=== PATIENT | female | born 1960 | race Caucasian/White ===

== ENCOUNTER → 2017-05-28 | Outpatient (CLI) | payer OTHER ==
[~2017-05-28] MED LIST: ABAC300; ALBIPROI INH; ALBU.083IS; ALBU.083IS IH; ALBU3IS INH; ALBU90I INH; ALBU90OI; ALBU90OI6 INH; ALBU90OI61 INH; ALBUIS; ALBUTEROL; ASCO500 PO; ATELVIA; AZIT250 PO; AZIT500 PO; Albuterol2.5 MG/0.5 INH; Amoxicillin500 MG PO; BIOTIN PO; BIOTIN5 MG PO; BIOTIN5000 MC1 SL; BUSP10; C-PAP; CEFP200 PO; CEPH500 PO; CLIN300 PO; CPAP; CYCL10; CYCL10 PO; CYTOXIN; Colace100 MG PO; DECADRON4 MG PO; DIAZ10 PO; DIAZ5; DIAZ5 PO; DILT120 PO; DILT180ER PO; DIPH50 PO; DOXY100 PO; ERGO400 PO; ESCI20; ESCI20 PO; FLUO10 PO; FLUSAL2505; FLUSAL5005; FLUSAL5005 IH; FLUT1DIS8 INH; FOSAMAX PO; FURO20 PO; GUAI600T33; GUAI600T33 PO; HYDACE10B PO; HYDACE5 PO; HYDCHL12.5 PO; HYDCHL25 PO; HYDMOR2 PO; HYDPAM50 PO; IBUP400 PO; IBUP600 PO; IBUP800 PO; K-Dur10 MEQ PO; LEVFLO500 PO; LEVO750 PO; LIDO700A20 TOP; LISI20 PO; LITH300C; LITH300C PO; LITH300CA PO; LITH300ER PO; LORA.5 PO; MAGOXI400 PO; METH10 PO; METPRE4DP PO; METPRE8; MIRALAX17 GM PO; MONT10T; MONT10T PO; MUCINEX; Magnesium250 MG PO; Mucinex100 MG PO; NEBULIZ; NICO14TP TOP; OLAN5; OMEP20ER PO; OMEPRAZOLE MAGN20 MG PO; ONDA4 PO; OXYACE5T PO; OXYC10ER PO; OXYC10TA19 PO; OXYC15ER PO; OXYC1TAB11 PO; OXYC5 PO; OXYGEN; OXYGEN USE; Oxygen; POTA10T PO; POTCHL10ER PO; POTCHL20ER PO; PRED10; PRED10 PO; PRED20; PRED20 PO; PRED5 PO; PREDNISONE TAPER; PROACE100 PO; PROC10 PO; PROLIA60 MG/1 ML SQ; PROM25 PO; PROZAC20 MG PO; Prednisone10 MG PO; Prednisone20 MG PO; Prednisone50 MG PO; Prozac20 MG PO; QUET25; QUET25 PO; RANI150 PO; RESTORIL; RXOXYACE PO; SOLUMEDROL; SPIR25 PO; SPIRIVA PO; TEMA30; TEMA30 PO; TETR250; THEO200ERA PO; TIOT18; TIOT18 IH; TIOT18 INH; Tylenol325 MG PO; Ultram50 MG PO; VALCADE; VARE1 PO; VENL75ER; VERA120 PO; VERA120ERB PO; VERA80; VERA80 PO; VERAPAMIL; VITAMIN D-32000 UNIT PO; Ventolin Soln3 ML INH; Ventolin5 MG/1 ML IH; Zithromax250 MG PO; Zofran4 MG PO; [UNRECOGNIZED DRUG - OTHER] PO
[2017-05-28 19:02] LABS: Alanine Aminotransfer (ALT/SGP 30 U/L (12-78); Albumin, Blood 3.6 g/dL (3.4-5.0); Albumin/Globulin Ratio 1.1 (0.8-1.8); Alk Phos 79 U/L (50-136); Anion Gap 10 mmol/L (6-16); Aspartate Aminotrans (AST/SGOT 21 U/L (12-37); Bilirubin, Total 0.4 mg/dL (0.1-1.0); Blood Urea Nitrogen 14 mg/dL (8-24); Bun/Creatinine Ratio 14.1 (12.0-20.0); CO2, Blood 25 mmol/L (21-32); Calcium, Blood 9.8 mg/dL (8.5-10.1); Chloride, Blood 106 mmol/L (98-108); Creatinine, Blood 0.99 mg/dL (0.40-1.00); Globulin, Blood 3.2 g/dL (2.2-4.0); Glomerular Filtration Rate >60 (60-); Glucose, Blood 91 mg/dL (70-99); Potassium, Blood 4.3 mmol/L (3.5-5.5); Sodium, Blood 141 mmol/L (136-145); Total Protein, Blood 6.8 g/dL (6.4-8.2)
[2017-06-01 13:14] LABS: Albumin 3.6 g/dL (3.5-5.0); Monoclonal Protein 0.9 g/dL; Monoclonal Protien % 13.8 %; Protein, Total 6.7 g/dL (6.2-8.2)
== END | disposition home or self-care (01) ==
LOC: LAB SHORT 13:44
PROVIDERS: Internal Medicine Hematology & Oncology
DX: C90.00 Multiple myeloma not having achieved remission (principal)
CPT/HCPCS: 80053; 83883; 84165; 86334

== ENCOUNTER → 2017-06-11 | Outpatient (CLI) | payer OTHER ==
[2017-06-11 15:07] LABS: Alanine Aminotransfer (ALT/SGP 30 U/L (12-78); Albumin, Blood 3.6 g/dL (3.4-5.0); Albumin/Globulin Ratio 1.2 (0.8-1.8); Alk Phos 75 U/L (50-136); Anion Gap 9 mmol/L (6-16); Aspartate Aminotrans (AST/SGOT 15 U/L (12-37); Bilirubin, Total 0.4 mg/dL (0.1-1.0); Blood Urea Nitrogen 14 mg/dL (8-24); CO2, Blood 27 mmol/L (21-32); Calcium, Blood 9.8 mg/dL (8.5-10.1); Chloride, Blood 107 mmol/L (98-108); Creatinine, Blood 0.88 mg/dL (0.40-1.00); Globulin, Blood 3.1 g/dL (2.2-4.0); Glomerular Filtration Rate >60 (60-); Glucose, Blood 128 mg/dL (70-99); Sodium, Blood 143 mmol/L (136-145); Total Protein, Blood 6.7 g/dL (6.4-8.2)
== END | disposition home or self-care (01) ==
LOC: LAB 13:05
PROVIDERS: Internal Medicine Hematology & Oncology
DX: C90.00 Multiple myeloma not having achieved remission (principal)
CPT/HCPCS: 80053

== ENCOUNTER → 2017-06-18 | Outpatient (CLI) | payer OTHER ==
[2017-06-18 14:44] LABS: Alanine Aminotransfer (ALT/SGP 26 U/L (12-78); Albumin, Blood 3.6 g/dL (3.4-5.0); Albumin/Globulin Ratio 1.1 (0.8-1.8); Alk Phos 58 U/L (50-136); Anion Gap 7 mmol/L (6-16); Aspartate Aminotrans (AST/SGOT 20 U/L (12-37); Bilirubin, Total 0.4 mg/dL (0.1-1.0); Blood Urea Nitrogen 12 mg/dL (8-24); Bun/Creatinine Ratio 13.4 (12.0-20.0); CO2, Blood 28 mmol/L (21-32); Calcium, Blood 9.7 mg/dL (8.5-10.1); Chloride, Blood 106 mmol/L (98-108); Creatinine, Blood 0.89 mg/dL (0.40-1.00); Globulin, Blood 3.2 g/dL (2.2-4.0); Glomerular Filtration Rate >60 (60-); Glucose, Blood 135 mg/dL (70-99); Potassium, Blood 4.4 mmol/L (3.5-5.5); Sodium, Blood 141 mmol/L (136-145); Total Protein, Blood 6.8 g/dL (6.4-8.2)
[2017-06-22 11:42] LABS: Albumin 3.7 g/dL (3.5-5.0); Albumin 54.6 % (45.0-80.0); Monoclonal Protein 0.9 g/dL; Protein, Total 6.7 g/dL (6.2-8.2)
== END | disposition home or self-care (01) ==
LOC: LAB 13:04
PROVIDERS: Internal Medicine Hematology & Oncology
DX: C90.00 Multiple myeloma not having achieved remission (principal)
CPT/HCPCS: 80053; 83883; 84165; 86334

== ENCOUNTER → 2017-07-09 | Outpatient (CLI) | payer OTHER ==
[~2017-07-09] MED LIST changes: -MONT10T PO; -ONDA4 PO; -OXYC5 PO
[2017-07-09 17:20] LABS: Albumin, Blood 3.6 g/dL (3.4-5.0); Albumin/Globulin Ratio 1.3 (0.8-1.8); Bilirubin, Total 0.4 mg/dL (0.1-1.0); Bun/Creatinine Ratio 8.7 (12.0-20.0); Calcium, Blood 10.5 mg/dL (8.5-10.1); Creatinine, Blood 1.04 mg/dL (0.40-1.00); Globulin, Blood 2.8 g/dL (2.2-4.0); Potassium, Blood 4.4 mmol/L (3.5-5.5); Total Protein, Blood 6.4 g/dL (6.4-8.2)
[2017-07-10 16:06] LABS: Protein, Total 6.1 g/dL (6.2-8.2)
[2017-07-13 13:20] LABS: Albumin 3.4 g/dL (3.5-5.0); Albumin 56.4 % (45.0-80.0); Monoclonal Protein 0.7 g/dL; Monoclonal Protien % 11.2 %
== END ==
LOC: LAB 16:26 → LAB SHORT 16:26
PROVIDERS: Internal Medicine Hematology & Oncology
DX: C90.00 Multiple myeloma not having achieved remission (principal)
CPT/HCPCS: 80053; 83883; 84165; 86334

== ENCOUNTER 2017-07-17 14:10 | Emergency (ER) | payer OTHER ==
[~2017-07-17] VITALS: Ht 152.4 cm; Wt 122.5 kg
[~2017-07-17 14:10] MED LIST changes: -BIOTIN5000 MC1 SL; -CYTOXIN; -Colace100 MG PO; -DECADRON4 MG PO; -LIDO700A20 TOP; -MAGOXI400 PO; -MIRALAX17 GM PO; -MONT10T PO; -Mucinex100 MG PO; -OMEPRAZOLE MAGN20 MG PO; -ONDA4 PO; -OXYC5 PO; -Tylenol325 MG PO; -VALCADE; -Zofran4 MG PO; -[UNRECOGNIZED DRUG - OTHER] PO
[2017-07-17 14:57] LABS: BASOPHILS ABSOLUTE AUTO 0.08 K/mm3 (0.00-0.23); BASOPHILS PERCENT AUTO 1 % (0-2); EOSINOPHILS ABSOLUTE AUTO 0.02 K/mm3 (0.00-0.68); EOSINOPHILS PERCENT AUTO 0 % (0-6); Hematocrit 40.3 % (33.0-51.0); Hemoglobin 12.9 g/dL (11.5-16.0); IMMATURE GRAN ABSOLUTE AUTO 0.46 K/mm3 (0.00-0.10); IMMATURE GRAN PERCENT AUTO 4 % (0-1); LYMPHOCYTES ABSOLUTE AUTO 0.98 K/mm3 (0.84-5.20); LYMPHOCYTES PERCENT AUTO 9 % (21-46); MONOCYTES ABSOLUTE AUTO 0.18 K/mm3 (0.16-1.47); MONOCYTES PERCENT AUTO 2 % (4-13); Mean Corpuscular HGB 29.7 pg (26.0-34.0); Mean Corpuscular Volume 93 fL (80-100); Mean Platelet Volume 9.8 fL (9.1-12.4); NEUTROPHILS ABSOLUTE AUTO 9.19 K/mm3 (1.96-9.15); NEUTROPHILS PERCENT AUTO 84 % (41-73); Platelet Count 274 K/mm3 (150-400); RDW Coefficient Variation 14.6 % (11.7-14.2); Red Blood Cell Count 4.34 M/mm3 (3.80-5.20); White Blood Cell Count 10.91 K/mm3 (4.00-11.30)
[2017-07-17 15:16] LABS: Alanine Aminotransfer (ALT/SGP 38 U/L (12-78); Albumin, Blood 3.9 g/dL (3.4-5.0); Alk Phos 72 U/L (50-136); Anion Gap 9 mmol/L (6-16); Aspartate Aminotrans (AST/SGOT 23 U/L (12-37); Bilirubin, Total 0.4 mg/dL (0.1-1.0); Blood Urea Nitrogen 13 mg/dL (8-24); Bun/Creatinine Ratio 13.9 (12.0-20.0); CO2, Blood 26 mmol/L (21-32); Calcium, Blood 10.8 mg/dL (8.5-10.1); Chloride, Blood 103 mmol/L (98-108); Creatinine, Blood 0.94 mg/dL (0.40-1.00); Globulin, Blood 3.8 g/dL (2.2-4.0); Glomerular Filtration Rate >60 (60-); Glucose, Blood 152 mg/dL (70-99); Potassium, Blood 4.2 mmol/L (3.5-5.5); Sodium, Blood 138 mmol/L (136-145); Total Protein, Blood 7.7 g/dL (6.4-8.2); Troponin I <0.015 ng/mL (0.000-0.040)
== END 2017-07-17 18:52 | disposition home or self-care (01) ==
LOC: ER 14:10
PROVIDERS: Emergency Medicine
DX: J84.9 Interstitial pulmonary disease, unspecified (principal); C90.00 Multiple myeloma not having achieved remission; J44.9 Chronic obstructive pulmonary disease, unspecified; Z91.048 Other nonmedicinal substance allergy status; Z79.899 Other long term (current) drug therapy; Z87.891 Personal history of nicotine dependence
CPT/HCPCS: 36415; 71046; 80053; 84484; 85025; 93005; 93010; 99284

== ENCOUNTER → 2017-07-17 | Outpatient (CLI) | payer OTHER ==
[~2017-07-17] MED LIST changes: +MONT10T PO; +ONDA4 PO; +OXYC5 PO
[2017-07-17 13:15] LABS: Alanine Aminotransfer (ALT/SGP 32 U/L (12-78); Albumin, Blood 3.6 g/dL (3.4-5.0); Albumin/Globulin Ratio 1.2 (0.8-1.8); Alk Phos 61 U/L (50-136); Anion Gap 8 mmol/L (6-16); Aspartate Aminotrans (AST/SGOT 22 U/L (12-37); Bilirubin, Total 0.7 mg/dL (0.1-1.0); Blood Urea Nitrogen 12 mg/dL (8-24); Bun/Creatinine Ratio 13.5 (12.0-20.0); CO2, Blood 27 mmol/L (21-32); Calcium, Blood 10.3 mg/dL (8.5-10.1); Chloride, Blood 106 mmol/L (98-108); Creatinine, Blood 0.89 mg/dL (0.40-1.00); Glomerular Filtration Rate >60 (60-); Glucose, Blood 120 mg/dL (70-99); Potassium, Blood 4.4 mmol/L (3.5-5.5); Sodium, Blood 141 mmol/L (136-145); Total Protein, Blood 6.6 g/dL (6.4-8.2)
== END ==
LOC: LAB 10:00
PROVIDERS: Internal Medicine Hematology & Oncology
DX: C90.00 Multiple myeloma not having achieved remission (principal)
CPT/HCPCS: 80053

== ENCOUNTER → 2017-07-24 | Outpatient (CLI) | payer OTHER ==
[~2017-07-24] MED LIST changes: +BIOTIN5000 MC1 SL; +CYTOXIN; +Colace100 MG PO; +DECADRON4 MG PO; +LIDO700A20 TOP; +MAGOXI400 PO; +MIRALAX17 GM PO; +MONT10T PO; +Mucinex100 MG PO; +OMEPRAZOLE MAGN20 MG PO; +ONDA4 PO; +OXYC5 PO; +Tylenol325 MG PO; +VALCADE; +Zofran4 MG PO; +[UNRECOGNIZED DRUG - OTHER] PO
[2017-07-24 13:02] LABS: Alanine Aminotransfer (ALT/SGP 29 U/L (12-78); Albumin, Blood 3.6 g/dL (3.4-5.0); Albumin/Globulin Ratio 1.2 (0.8-1.8); Alk Phos 71 U/L (50-136); Anion Gap 8 mmol/L (6-16); Aspartate Aminotrans (AST/SGOT 17 U/L (12-37); Bilirubin, Total 0.4 mg/dL (0.1-1.0); Blood Urea Nitrogen 14 mg/dL (8-24); Bun/Creatinine Ratio 15.9 (12.0-20.0); CO2, Blood 27 mmol/L (21-32); Calcium, Blood 9.1 mg/dL (8.5-10.1); Chloride, Blood 107 mmol/L (98-108); Creatinine, Blood 0.88 mg/dL (0.40-1.00); Globulin, Blood 3.1 g/dL (2.2-4.0); Glomerular Filtration Rate >60 (60-); Glucose, Blood 122 mg/dL (70-99); Sodium, Blood 142 mmol/L (136-145); Total Protein, Blood 6.7 g/dL (6.4-8.2)
[2017-07-27 14:45] LABS: Albumin 3.8 g/dL (3.5-5.0); Albumin 57.5 % (45.0-80.0); Monoclonal Protein 0.6 g/dL; Monoclonal Protien % 9.5 %; Protein, Total 6.6 g/dL (6.2-8.2)
== END | disposition home or self-care (01) ==
LOC: LAB 12:32
PROVIDERS: Internal Medicine Hematology & Oncology
DX: C90.00 Multiple myeloma not having achieved remission (principal)
CPT/HCPCS: 80053; 83883; 84165; 86334

== ENCOUNTER → 2017-08-07 | Outpatient (CLI) | payer OTHER ==
[~2017-08-07] MED LIST changes: -MONT10T PO; -ONDA4 PO; -OXYC5 PO
[2017-08-07 13:48] LABS: Alanine Aminotransfer (ALT/SGP 32 U/L (12-78); Albumin, Blood 3.5 g/dL (3.4-5.0); Albumin/Globulin Ratio 1.2 (0.8-1.8); Alk Phos 63 U/L (50-136); Anion Gap 8 mmol/L (6-16); Aspartate Aminotrans (AST/SGOT 18 U/L (12-37); Bilirubin, Total 0.3 mg/dL (0.1-1.0); Blood Urea Nitrogen 12 mg/dL (8-24); Bun/Creatinine Ratio 12.6 (12.0-20.0); CO2, Blood 26 mmol/L (21-32); Calcium, Blood 9.8 mg/dL (8.5-10.1); Chloride, Blood 108 mmol/L (98-108); Creatinine, Blood 0.95 mg/dL (0.40-1.00); Glomerular Filtration Rate >60 (60-); Glucose, Blood 107 mg/dL (70-99); Potassium, Blood 4.1 mmol/L (3.5-5.5); Sodium, Blood 142 mmol/L (136-145); Total Protein, Blood 6.5 g/dL (6.4-8.2)
[2017-08-12 12:32] LABS: Albumin 3.5 g/dL (3.5-5.0); Albumin 56.3 % (45.0-80.0); Monoclonal Protein 0.6 g/dL; Monoclonal Protien % 9.8 %; Protein, Total 6.2 g/dL (6.2-8.2)
== END | disposition home or self-care (01) ==
LOC: LAB 12:21 → LAB SHORT 12:21
PROVIDERS: Internal Medicine Hematology & Oncology
DX: C90.00 Multiple myeloma not having achieved remission (principal)
CPT/HCPCS: 80053; 83883; 84165; 86334

== ENCOUNTER → 2017-08-14 | Outpatient (CLI) | payer OTHER ==
[~2017-08-14] MED LIST changes: +MONT10T PO; +ONDA4 PO; +OXYC5 PO
[2017-08-14 14:27] LABS: Alanine Aminotransfer (ALT/SGP 31 U/L (12-78); Albumin, Blood 3.6 g/dL (3.4-5.0); Albumin/Globulin Ratio 1.1 (0.8-1.8); Alk Phos 52 U/L (50-136); Anion Gap 7 mmol/L (6-16); Aspartate Aminotrans (AST/SGOT 18 U/L (12-37); Bilirubin, Total 0.3 mg/dL (0.1-1.0); Blood Urea Nitrogen 14 mg/dL (8-24); Bun/Creatinine Ratio 14.7 (12.0-20.0); CO2, Blood 27 mmol/L (21-32); Calcium, Blood 10.1 mg/dL (8.5-10.1); Chloride, Blood 107 mmol/L (98-108); Creatinine, Blood 0.95 mg/dL (0.40-1.00); Globulin, Blood 3.2 g/dL (2.2-4.0); Glomerular Filtration Rate >60 (60-); Glucose, Blood 110 mg/dL (70-99); Potassium, Blood 4.2 mmol/L (3.5-5.5); Sodium, Blood 141 mmol/L (136-145); Total Protein, Blood 6.8 g/dL (6.4-8.2)
[2017-08-17 13:44] LABS: Albumin 3.8 g/dL (3.5-5.0); Albumin 57.7 % (45.0-80.0); Monoclonal Protein 0.6 g/dL; Monoclonal Protien % 8.8 %; Protein, Total 6.6 g/dL (6.2-8.2)
== END | disposition home or self-care (01) ==
LOC: LAB 09:30
PROVIDERS: Internal Medicine Hematology & Oncology
DX: C90.00 Multiple myeloma not having achieved remission (principal); D47.2 Monoclonal gammopathy
CPT/HCPCS: 80053; 83883; 84165; 86334

== ENCOUNTER → 2017-08-28 | Outpatient (CLI) | payer OTHER ==
[~2017-08-28] MED LIST changes: -MONT10T PO; -ONDA4 PO; -OXYC5 PO
[2017-08-28 17:55] LABS: Alanine Aminotransfer (ALT/SGP 31 U/L (12-78); Albumin, Blood 3.8 g/dL (3.4-5.0); Albumin/Globulin Ratio 1.3 (0.8-1.8); Alk Phos 64 U/L (50-136); Anion Gap 7 mmol/L (6-16); Aspartate Aminotrans (AST/SGOT 25 U/L (12-37); Bilirubin, Total 0.4 mg/dL (0.1-1.0); Blood Urea Nitrogen 8 mg/dL (8-24); Bun/Creatinine Ratio 8.8 (12.0-20.0); CO2, Blood 29 mmol/L (21-32); Calcium, Blood 10.6 mg/dL (8.5-10.1); Chloride, Blood 105 mmol/L (98-108); Glomerular Filtration Rate >60 (60-); Glucose, Blood 111 mg/dL (70-99); Potassium, Blood 4.3 mmol/L (3.5-5.5); Sodium, Blood 141 mmol/L (136-145); Total Protein, Blood 6.8 g/dL (6.4-8.2)
== END | disposition home or self-care (01) ==
LOC: LAB SHORT 16:56 → LAB 16:56
PROVIDERS: Internal Medicine Hematology & Oncology
DX: C90.00 Multiple myeloma not having achieved remission (principal)
CPT/HCPCS: 80053

== ENCOUNTER 2017-08-30 17:12 | Inpatient (IN) | payer OTHER ==
[~2017-08-30] VITALS: Ht 152.4 cm; Wt 131.0 kg
[~2017-08-30 17:12] MED LIST changes: -BIOTIN5000 MC1 SL; -CYTOXIN; -Colace100 MG PO; -DECADRON4 MG PO; -LIDO700A20 TOP; -MAGOXI400 PO; -MIRALAX17 GM PO; -Mucinex100 MG PO; -OMEPRAZOLE MAGN20 MG PO; -Tylenol325 MG PO; -VALCADE; -Zofran4 MG PO; -[UNRECOGNIZED DRUG - OTHER] PO
[2017-08-30 17:29] LABS: BASOPHILS ABSOLUTE AUTO 0.07 K/mm3 (0.00-0.23); BASOPHILS PERCENT AUTO 0 % (0-2); EOSINOPHILS ABSOLUTE AUTO 0.01 K/mm3 (0.00-0.68); EOSINOPHILS PERCENT AUTO 0 % (0-6); Hematocrit 40.7 % (33.0-51.0); Hemoglobin 12.4 g/dL (11.5-16.0); IMMATURE GRAN ABSOLUTE AUTO 0.13 K/mm3 (0.00-0.10); IMMATURE GRAN PERCENT AUTO 1 % (0-1); LYMPHOCYTES ABSOLUTE AUTO 1.58 K/mm3 (0.84-5.20); LYMPHOCYTES PERCENT AUTO 9 % (21-46); MONOCYTES ABSOLUTE AUTO 1.68 K/mm3 (0.16-1.47); MONOCYTES PERCENT AUTO 10 % (4-13); Mean Corpuscular HGB 30.2 pg (26.0-34.0); Mean Corpuscular HGB Conc 30.5 g/dL (31.5-36.5); Mean Corpuscular Volume 99 fL (80-100); Mean Platelet Volume 9.7 fL (9.1-12.4); NEUTROPHILS ABSOLUTE AUTO 13.55 K/mm3 (1.96-9.15); NEUTROPHILS PERCENT AUTO 80 % (41-73); Platelet Count 220 K/mm3 (150-400); RDW Coefficient Variation 14.2 % (11.7-14.2); RDW Standard Deviation 51.9 fL (35.1-46.3); Red Blood Cell Count 4.11 M/mm3 (3.80-5.20); White Blood Cell Count 17.02 K/mm3 (4.00-11.30)
[2017-08-30 17:43] LABS: Alanine Aminotransfer (ALT/SGP 31 U/L (12-78); Albumin, Blood 3.6 g/dL (3.4-5.0); Alk Phos 66 U/L (50-136); Anion Gap 2 mmol/L (6-16); Aspartate Aminotrans (AST/SGOT 24 U/L (12-37); Bilirubin, Total 0.3 mg/dL (0.1-1.0); Blood Urea Nitrogen 19 mg/dL (8-24); Bun/Creatinine Ratio 19.6 (12.0-20.0); CO2, Blood 34 mmol/L (21-32); Calcium, Blood 9.7 mg/dL (8.5-10.1); Chloride, Blood 107 mmol/L (98-108); Creatinine, Blood 0.97 mg/dL (0.40-1.00); Globulin, Blood 3.6 g/dL (2.2-4.0); Glomerular Filtration Rate >60 (60-); Glucose, Blood 105 mg/dL (70-99); Potassium, Blood 4.3 mmol/L (3.5-5.5); Sodium, Blood 143 mmol/L (136-145); Total Protein, Blood 7.2 g/dL (6.4-8.2); Troponin I <0.015 ng/mL (0.000-0.040)
[2017-08-30 17:59] LABS: Base Excess Venous 6.6 mmol/L; Bicarbonate Venous 28.6 mmol/L (24.0-30.0); PCO2 Venous 65.6 mmHg (38-42); PO2 Venous 113 mmHg (38-42); pH Blood Venous 7.31 (7.34-7.37)
[2017-08-30] MEDS ORDERED: QUET25 PO (20:51)
[2017-08-31 04:21] LABS: BASOPHILS ABSOLUTE AUTO 0.02 K/mm3 (0.00-0.23); BASOPHILS PERCENT AUTO 0 % (0-2); EOSINOPHILS PERCENT AUTO 0 % (0-6); Hematocrit 37.7 % (33.0-51.0); Hemoglobin 11.5 g/dL (11.5-16.0); IMMATURE GRAN ABSOLUTE AUTO 0.08 K/mm3 (0.00-0.10); IMMATURE GRAN PERCENT AUTO 1 % (0-1); LYMPHOCYTES ABSOLUTE AUTO 0.49 K/mm3 (0.84-5.20); LYMPHOCYTES PERCENT AUTO 5 % (21-46); MONOCYTES ABSOLUTE AUTO 0.17 K/mm3 (0.16-1.47); MONOCYTES PERCENT AUTO 2 % (4-13); Mean Corpuscular HGB 29.8 pg (26.0-34.0); Mean Corpuscular HGB Conc 30.5 g/dL (31.5-36.5); Mean Corpuscular Volume 98 fL (80-100); Mean Platelet Volume 10.1 fL (9.1-12.4); NEUTROPHILS ABSOLUTE AUTO 9.41 K/mm3 (1.96-9.15); NEUTROPHILS PERCENT AUTO 93 % (41-73); Platelet Count 204 K/mm3 (150-400); RDW Coefficient Variation 14.5 % (11.7-14.2); RDW Standard Deviation 51.9 fL (35.1-46.3); Red Blood Cell Count 3.86 M/mm3 (3.80-5.20); White Blood Cell Count 10.17 K/mm3 (4.00-11.30)
[2017-08-31 04:41] LABS: Anion Gap 5 mmol/L (6-16); Blood Urea Nitrogen 20 mg/dL (8-24); CO2, Blood 31 mmol/L (21-32); Calcium, Blood 9.9 mg/dL (8.5-10.1); Chloride, Blood 106 mmol/L (98-108); Creatinine, Blood 0.87 mg/dL (0.40-1.00); Glomerular Filtration Rate >60 (60-); Glucose, Blood 173 mg/dL (70-99); Potassium, Blood 4.9 mmol/L (3.5-5.5); Sodium, Blood 142 mmol/L (136-145)
[2017-08-31 08:58] LABS: Adenovirus Not Detected (NOT DETECT); Bordetella pertussis Not Detected (NOT DETECT); Chlamydophila pneumoniae Not Detected (NOT DETECT); Coronavirus 229E Not Detected (NOT DETECT); Coronavirus HKU1 Not Detected (NOT DETECT); Coronavirus NL63 Not Detected (NOT DETECT); Coronavirus OC43 Not Detected (NOT DETECT); Human Metapneumovirus Not Detected (NOT DETECT); Human Rhinovirus/Enterovirus Not Detected (NOT DETECT); Influenza A/2009-H1 Not Detected (NOT DETECT); Influenza A/H1 Not Detected (NOT DETECT); Influenza A/H3 Not Detected (NOT DETECT); Influenza B Not Detected (NOT DETECT); Mycoplasma pneumoniae Not Detected (NOT DETECT); Parainfluenza Virus 1 Not Detected (NOT DETECT); Parainfluenza Virus 2 Not Detected (NOT DETECT); Parainfluenza Virus 3 Not Detected (NOT DETECT); Parainfluenza Virus 4 Not Detected (NOT DETECT)
[2017-08-31 10:15] LABS: Influenza A Not Detected (NOT DETECT); Respiratory Syncytial Virus Detected (NOT DETECT)
[2017-09-02 04:41] LABS: Mean Platelet Volume 10.4 fL (9.1-12.4); Platelet Count 209 K/mm3 (150-400)
[2017-09-04 04:14] LABS: Hematocrit 37.6 % (33.0-51.0); Hemoglobin 11.6 g/dL (11.5-16.0); Mean Corpuscular HGB 29.6 pg (26.0-34.0); Mean Corpuscular HGB Conc 30.9 g/dL (31.5-36.5); Mean Corpuscular Volume 96 fL (80-100); Mean Platelet Volume 10.1 fL (9.1-12.4); NRBC ABSOLUTE 0.02 K/mm3 (0.00-0.02); NRBC Auto 0.1 /100 WBC (0.0-0.2); Platelet Count 222 K/mm3 (150-400); RDW Coefficient Variation 13.8 % (11.7-14.2); RDW Standard Deviation 48.8 fL (35.1-46.3); Red Blood Cell Count 3.92 M/mm3 (3.80-5.20); White Blood Cell Count 15.44 K/mm3 (4.00-11.30)
[2017-09-04 04:44] LABS: Anion Gap 4 mmol/L (6-16); Blood Urea Nitrogen 26 mg/dL (8-24); Bun/Creatinine Ratio 30.7 (12.0-20.0); CO2, Blood 35 mmol/L (21-32); Calcium, Blood 10.1 mg/dL (8.5-10.1); Chloride, Blood 102 mmol/L (98-108); Creatinine, Blood 0.85 mg/dL (0.40-1.00); Glomerular Filtration Rate >60 (60-); Glucose, Blood 153 mg/dL (70-99); Potassium, Blood 4.9 mmol/L (3.5-5.5); Sodium, Blood 141 mmol/L (136-145)
[2017-09-04 05:27] LABS: BAND PERCENT MAN 9 % (0-8); BASOPHILS PERCENT MAN 0 % (0-2); EOSINOPHILS PERCENT MAN 0 % (0-6); LYMPHOCYTES ABSOLUTE MAN 0.77 K/mm3 (0.84-5.20); LYMPHOCYTES PERCENT MAN 5 % (21-46); MONOCYTES ABSOLUTE MAN 0.46 K/mm3 (0.16-1.47); MONOCYTES PERCENT MAN 3 % (4-13); SEG NEUTROPHILS PERCENT MAN 83 % (41-73); TOTAL CELLS COUNTED 100
[2017-09-05 04:11] LABS: Hematocrit 39.6 % (33.0-51.0); Hemoglobin 12.2 g/dL (11.5-16.0); Mean Corpuscular HGB 29.7 pg (26.0-34.0); Mean Corpuscular HGB Conc 30.8 g/dL (31.5-36.5); Mean Corpuscular Volume 96 fL (80-100); Mean Platelet Volume 10.4 fL (9.1-12.4); Platelet Count 253 K/mm3 (150-400); RDW Coefficient Variation 13.8 % (11.7-14.2); RDW Standard Deviation 48.6 fL (35.1-46.3); Red Blood Cell Count 4.11 M/mm3 (3.80-5.20); White Blood Cell Count 20.34 K/mm3 (4.00-11.30)
[2017-09-05 04:33] LABS: Anion Gap 6 mmol/L (6-16); Blood Urea Nitrogen 27 mg/dL (8-24); Bun/Creatinine Ratio 27.2 (12.0-20.0); CO2, Blood 33 mmol/L (21-32); Calcium, Blood 10.1 mg/dL (8.5-10.1); Chloride, Blood 99 mmol/L (98-108); Creatinine, Blood 0.99 mg/dL (0.40-1.00); Glomerular Filtration Rate >60 (60-); Glucose, Blood 239 mg/dL (70-99); Potassium, Blood 4.4 mmol/L (3.5-5.5); Sodium, Blood 138 mmol/L (136-145)
[2017-09-05 05:02] LABS: BAND PERCENT MAN 3 % (0-8); BASOPHILS PERCENT MAN 0 % (0-2); EOSINOPHILS PERCENT MAN 0 % (0-6); LYMPHOCYTES % ATYPICAL MANUAL 5 % (0-0); LYMPHOCYTES ABSOLUTE MAN 1.62 K/mm3 (0.84-5.20); LYMPHOCYTES PERCENT MAN 3 % (21-46); MONOCYTES ABSOLUTE MAN 0.81 K/mm3 (0.16-1.47); MONOCYTES PERCENT MAN 4 % (4-13); MYELOCYTE PERCENT MAN 2 % (0-0); NEUTROPHILS ABSOLUTE MAN 17.08 K/mm3 (1.96-9.15); SEG NEUTROPHILS PERCENT MAN 81 % (41-73); TOTAL CELLS COUNTED 100
[2017-09-05 05:03] LABS: PROMYELOCYTE PERCENT MAN 2 % (0-0)
[2017-09-06 04:05] LABS: Hemoglobin 12.4 g/dL (11.5-16.0); Mean Corpuscular HGB 29.9 pg (26.0-34.0); Mean Corpuscular Volume 96 fL (80-100); Mean Platelet Volume 10.1 fL (9.1-12.4); Platelet Count 235 K/mm3 (150-400); RDW Coefficient Variation 13.8 % (11.7-14.2); RDW Standard Deviation 49.1 fL (35.1-46.3); Red Blood Cell Count 4.15 M/mm3 (3.80-5.20); White Blood Cell Count 20.16 K/mm3 (4.00-11.30)
[2017-09-06 04:30] LABS: Anion Gap 6 mmol/L (6-16); Blood Urea Nitrogen 30 mg/dL (8-24); Bun/Creatinine Ratio 30.7 (12.0-20.0); CO2, Blood 33 mmol/L (21-32); Calcium, Blood 10.1 mg/dL (8.5-10.1); Chloride, Blood 99 mmol/L (98-108); Creatinine, Blood 0.98 mg/dL (0.40-1.00); Glomerular Filtration Rate >60 (60-); Glucose, Blood 204 mg/dL (70-99); Potassium, Blood 4.6 mmol/L (3.5-5.5); Sodium, Blood 138 mmol/L (136-145)
[2017-09-06] MEDS ORDERED: PROZAC20 MG PO (14:17)
[2017-09-06] MEDS ORDERED: Tylenol325 MG PO (14:26)
[2017-09-06] MEDS ORDERED: Colace100 MG PO (14:28)
[2017-09-06] MEDS ORDERED: LIDO700A20 TOP (14:30)
[2017-09-06] MEDS ORDERED: [UNRECOGNIZED DRUG - OTHER] PO (14:41)
[2017-09-06] MEDS ORDERED: MIRALAX17 GM PO (14:42)
[2017-09-06] MEDS ORDERED: Zofran4 MG PO (14:43)
[2017-09-06] MEDS ORDERED: LEVO750 PO (14:45)
[2017-09-06] MEDS ORDERED: PRED10 PO (14:49)
[2017-09-06] MEDS ORDERED: OMEPRAZOLE MAGN20 MG PO (14:51)
== END 2017-09-06 15:45 | disposition home or self-care (01) | DRG 189 ==
LOC: ER 17:12 → PCU 18:59
PROVIDERS: Emergency Medicine; Hospitalist; Internal Medicine
PROC: 5A09557 Assistance with Respiratory Ventilation, Greater than 96 Consecutive Hours, Continuous Positive Airway Pressure (ICD-10-PCS; principal; 2017-08-30)
DX: J96.21 Acute and chronic respiratory failure with hypoxia (principal); J15.1 Pneumonia due to Pseudomonas; J44.1 Chronic obstructive pulmonary disease with (acute) exacerbation; J44.0 Chronic obstructive pulmonary disease with (acute) lower respiratory infection; C90.00 Multiple myeloma not having achieved remission; Z68.43 Body mass index [BMI] 50.0-59.9, adult; E66.01 Morbid (severe) obesity due to excess calories; J96.22 Acute and chronic respiratory failure with hypercapnia; Z92.21 Personal history of antineoplastic chemotherapy; I10 Essential (primary) hypertension; G47.33 Obstructive sleep apnea (adult) (pediatric); F31.9 Bipolar disorder, unspecified; M81.0 Age-related osteoporosis without current pathological fracture; Z99.81 Dependence on supplemental oxygen; Z79.899 Other long term (current) drug therapy; Z87.891 Personal history of nicotine dependence
CPT/HCPCS: 36415; 71045; 71046; 80048; 80053; 82803; 83880; 84484; 85025; 85027; 85049; 87040; 87070; 87077; 87186; 87205; 87486; 87581; 87633; 87798; 93005; 93010; 94640; 94660; 94760; 94762; 96374; 96375; 99285; J0692; J0696; J1650; J2405; J2543; J2920; J2930; J3010; J3475; J3480; J7030

== ENCOUNTER 2017-09-18 07:37 | Day surgery (SDC) | payer OTHER ==
[~2017-09-18] VITALS: Ht 152.4 cm; Wt 122.5 kg
[~2017-09-18 07:37] MED LIST changes: +Colace100 MG PO; +LIDO700A20 TOP; +MIRALAX17 GM PO; +OMEPRAZOLE MAGN20 MG PO; +Tylenol325 MG PO; +Zofran4 MG PO; +[UNRECOGNIZED DRUG - OTHER] PO
[2017-09-18] MEDS ORDERED: MAGOXI400 PO (08:23)
[2017-09-18] MEDS ORDERED: OXYC10ER PO (08:25)
[2017-09-18] MEDS ORDERED: QUET25 PO (08:28)
[2017-09-18] MEDS ORDERED: ALBU90OI6 INH (08:30)
[2017-09-18] MEDS ORDERED: Mucinex100 MG PO (08:31)
[2017-09-18] MEDS ORDERED: ASCO500 PO (08:32)
[2017-09-18] MEDS ORDERED: BIOTIN5000 MC1 SL (08:33)
[2017-09-18] MEDS ORDERED: DECADRON4 MG PO (08:34)
[2017-09-18] MEDS ORDERED: VALCADE (08:35)
[2017-09-18] MEDS ORDERED: CYTOXIN (08:35)
== END 2017-09-18 22:56 | disposition home or self-care (01) ==
LOC: ORSCMMR 07:37 → ORD 09:00 → ORSCMMR 22:56
PROVIDERS: Surgery
PROC: 02HV33Z Insertion of Infusion Device into Superior Vena Cava, Percutaneous Approach (ICD-10-PCS; principal; 2017-09-18 09:00)
PROC: B5181ZA Fluoroscopy of Superior Vena Cava using Low Osmolar Contrast, Guidance (ICD-10-PCS; principal; 2017-09-18 09:00)
DX: C90.00 Multiple myeloma not having achieved remission (principal); I10 Essential (primary) hypertension; I25.10 Atherosclerotic heart disease of native coronary artery without angina pectoris; G47.33 Obstructive sleep apnea (adult) (pediatric); I25.2 Old myocardial infarction; E66.01 Morbid (severe) obesity due to excess calories; Z68.43 Body mass index [BMI] 50.0-59.9, adult; Z79.899 Other long term (current) drug therapy
CPT/HCPCS: 77001; 87070; 87081; C1788; J0690; J1642; J2250; J2405; J7120

== ENCOUNTER → 2017-09-23 | Outpatient (CLI) | payer OTHER ==
[~2017-09-23] MED LIST changes: +BIOTIN5000 MC1 SL; +CYTOXIN; +DECADRON4 MG PO; +MAGOXI400 PO; +Mucinex100 MG PO; +VALCADE
== END | disposition home or self-care (01) ==
LOC: LAB SHORT 13:18 → LAB 13:18
DX: J18.9 Pneumonia, unspecified organism (principal)
CPT/HCPCS: 87070; 87077; 87186; 87205

== ENCOUNTER 2017-09-26 12:15 | Emergency (ER) | payer OTHER ==
[~2017-09-26] VITALS: Ht 152.4 cm; Wt 77.6 kg
[2017-09-26 13:46] LABS: BASOPHILS ABSOLUTE AUTO 0.03 K/mm3 (0.00-0.23); BASOPHILS PERCENT AUTO 1 % (0-2); EOSINOPHILS ABSOLUTE AUTO 0.27 K/mm3 (0.00-0.68); EOSINOPHILS PERCENT AUTO 5 % (0-6); Hematocrit 38.6 % (33.0-51.0); Hemoglobin 12.2 g/dL (11.5-16.0); IMMATURE GRAN ABSOLUTE AUTO 0.03 K/mm3 (0.00-0.10); IMMATURE GRAN PERCENT AUTO 1 % (0-1); LYMPHOCYTES ABSOLUTE AUTO 1.57 K/mm3 (0.84-5.20); LYMPHOCYTES PERCENT AUTO 26 % (21-46); MONOCYTES ABSOLUTE AUTO 0.71 K/mm3 (0.16-1.47); MONOCYTES PERCENT AUTO 12 % (4-13); Mean Corpuscular HGB 29.8 pg (26.0-34.0); Mean Corpuscular HGB Conc 31.6 g/dL (31.5-36.5); Mean Corpuscular Volume 94 fL (80-100); Mean Platelet Volume 9.8 fL (9.1-12.4); NEUTROPHILS ABSOLUTE AUTO 3.41 K/mm3 (1.96-9.15); NEUTROPHILS PERCENT AUTO 57 % (41-73); Platelet Count 236 K/mm3 (150-400); RDW Coefficient Variation 13.5 % (11.7-14.2); RDW Standard Deviation 47.1 fL (35.1-46.3); Red Blood Cell Count 4.09 M/mm3 (3.80-5.20); White Blood Cell Count 6.02 K/mm3 (4.00-11.30)
[2017-09-26 14:00] LABS: Alanine Aminotransfer (ALT/SGP 30 U/L (12-78); Albumin, Blood 3.1 g/dL (3.4-5.0); Albumin/Globulin Ratio 0.9 (0.8-1.8); Alk Phos 57 U/L (50-136); Anion Gap 5 mmol/L (6-16); Aspartate Aminotrans (AST/SGOT 18 U/L (12-37); Bilirubin, Total 0.3 mg/dL (0.1-1.0); Blood Urea Nitrogen 8 mg/dL (8-24); Bun/Creatinine Ratio 9.1 (12.0-20.0); CO2, Blood 31 mmol/L (21-32); Calcium, Blood 10.1 mg/dL (8.5-10.1); Chloride, Blood 109 mmol/L (98-108); Creatinine, Blood 0.88 mg/dL (0.40-1.00); Globulin, Blood 3.5 g/dL (2.2-4.0); Glomerular Filtration Rate >60 (60-); Glucose, Blood 139 mg/dL (70-99); Sodium, Blood 145 mmol/L (136-145); Total Protein, Blood 6.6 g/dL (6.4-8.2); Troponin I <0.015 ng/mL (0.000-0.040)
[2017-09-26] MEDS ORDERED: Prednisone20 MG PO (14:42)
[2017-09-26] MEDS ORDERED: LEVO750 PO (15:05)
== END 2017-09-26 15:15 | disposition home or self-care (01) ==
LOC: ER 12:15
PROVIDERS: Emergency Medicine
DX: J44.1 Chronic obstructive pulmonary disease with (acute) exacerbation (principal); F17.200 Nicotine dependence, unspecified, uncomplicated; Z91.048 Other nonmedicinal substance allergy status; Z79.899 Other long term (current) drug therapy
CPT/HCPCS: 36415; 71046; 80053; 83880; 84484; 85025; 93005; 93010; 94640; 96374; 96375; 99284; J2930; J3010

== ENCOUNTER 2017-10-23 00:32 | Day surgery (SDC) | payer OTHER ==
[2017-10-23] MEDS ORDERED: ONDA4 PO (10:42)
[2017-10-23] MEDS ORDERED: MONT10T PO (10:43)
[2017-10-23] MEDS ORDERED: LORA.5 PO (10:44)
[2017-10-23] MEDS ORDERED: OXYC5 PO (10:44)
== END 2017-10-23 10:03 | disposition home or self-care (01) ==
LOC: ATC 00:32
DX: R09.3 Abnormal sputum (principal); I12.9 Hypertensive chronic kidney disease with stage 1 through stage 4 chronic kidney disease, or unspecified chronic kidney disease; E11.22 Type 2 diabetes mellitus with diabetic chronic kidney disease; N18.2 Chronic kidney disease, stage 2 (mild); D63.1 Anemia in chronic kidney disease; N25.81 Secondary hyperparathyroidism of renal origin; E87.70 Fluid overload, unspecified; R60.9 Edema, unspecified; E11.21 Type 2 diabetes mellitus with diabetic nephropathy; E87.6 Hypokalemia; E55.9 Vitamin D deficiency, unspecified; F17.210 Nicotine dependence, cigarettes, uncomplicated
CPT/HCPCS: 96374; J0713; J1642

== ENCOUNTER 2017-10-24 00:01 | Day surgery (SDC) | payer OTHER ==
[~2017-10-24 00:01] MED LIST changes: +MONT10T PO; +ONDA4 PO; +OXYC5 PO
== END 2017-10-24 09:21 | disposition home or self-care (01) ==
LOC: ATC 00:01
DX: R09.3 Abnormal sputum (principal); I12.9 Hypertensive chronic kidney disease with stage 1 through stage 4 chronic kidney disease, or unspecified chronic kidney disease; E11.22 Type 2 diabetes mellitus with diabetic chronic kidney disease; N18.2 Chronic kidney disease, stage 2 (mild); D63.1 Anemia in chronic kidney disease; N25.81 Secondary hyperparathyroidism of renal origin; E87.70 Fluid overload, unspecified; F17.210 Nicotine dependence, cigarettes, uncomplicated; E87.6 Hypokalemia; E83.52 Hypercalcemia
CPT/HCPCS: J0713; J1642

== ENCOUNTER 2017-10-26 00:17 | Day surgery (SDC) | payer OTHER | END 2017-10-26 09:14 | disposition home or self-care (01) | LOC: ATC 00:17 | DX: R09.3 Abnormal sputum (principal); I12.9 Hypertensive chronic kidney disease with stage 1 through stage 4 chronic kidney disease, or unspecified chronic kidney disease; E11.22 Type 2 diabetes mellitus with diabetic chronic kidney disease; N18.2 Chronic kidney disease, stage 2 (mild); D63.1 Anemia in chronic kidney disease; E11.21 Type 2 diabetes mellitus with diabetic nephropathy; F17.210 Nicotine dependence, cigarettes, uncomplicated | CPT/HCPCS: 96365; J0713; J1642 ==

== ENCOUNTER 2017-10-27 00:27 | Day surgery (SDC) | payer OTHER | END 2017-10-27 09:18 | disposition home or self-care (01) | LOC: ATC 00:27 | DX: R09.3 Abnormal sputum (principal); I12.9 Hypertensive chronic kidney disease with stage 1 through stage 4 chronic kidney disease, or unspecified chronic kidney disease; N18.2 Chronic kidney disease, stage 2 (mild); D63.1 Anemia in chronic kidney disease; N25.81 Secondary hyperparathyroidism of renal origin; E87.70 Fluid overload, unspecified; R60.9 Edema, unspecified; E11.21 Type 2 diabetes mellitus with diabetic nephropathy; E87.6 Hypokalemia; E83.52 Hypercalcemia; G60.9 Hereditary and idiopathic neuropathy, unspecified; E55.9 Vitamin D deficiency, unspecified | CPT/HCPCS: 96365; J0713; J1642 ==

== ENCOUNTER → 2017-11-10 | Outpatient (CLI) | payer OTHER | END | disposition home or self-care (01) | LOC: LAB 10:00 → LAB SHORT 10:00 → LAB FUT 11-06 18:25 → EDSTATUS 11-06 18:25 | DX: N18.2 Chronic kidney disease, stage 2 (mild) (principal); R09.3 Abnormal sputum | CPT/HCPCS: 87070; 87205 ==

== ENCOUNTER → 2017-11-16 | Outpatient (CLI) | payer OTHER | END | disposition home or self-care (01) | LOC: LAB SHORT 12:06 → LAB 12:06 → LAB FUT 11-13 12:20 | PROVIDERS: Internal Medicine Hematology & Oncology | DX: C90.00 Multiple myeloma not having achieved remission (principal) | CPT/HCPCS: 81050 ==

== ENCOUNTER 2017-11-23 16:16 | Emergency (ER) | payer OTHER ==
[~2017-11-23] VITALS: Ht 152.4 cm; Wt 124.7 kg
[2017-11-23 16:50] LABS: BASOPHILS ABSOLUTE AUTO 0.05 K/mm3 (0.00-0.23); BASOPHILS PERCENT AUTO 0 % (0-2); EOSINOPHILS ABSOLUTE AUTO 0.13 K/mm3 (0.00-0.68); EOSINOPHILS PERCENT AUTO 1 % (0-6); Hematocrit 39.9 % (33.0-51.0); Hemoglobin 12.8 g/dL (11.5-16.0); IMMATURE GRAN ABSOLUTE AUTO 0.13 K/mm3 (0.00-0.10); IMMATURE GRAN PERCENT AUTO 1 % (0-1); LYMPHOCYTES ABSOLUTE AUTO 3.38 K/mm3 (0.84-5.20); LYMPHOCYTES PERCENT AUTO 25 % (21-46); MONOCYTES ABSOLUTE AUTO 0.89 K/mm3 (0.16-1.47); MONOCYTES PERCENT AUTO 7 % (4-13); Mean Corpuscular HGB 29.2 pg (26.0-34.0); Mean Corpuscular HGB Conc 32.1 g/dL (31.5-36.5); Mean Corpuscular Volume 91 fL (80-100); Mean Platelet Volume 9.6 fL (9.1-12.4); NEUTROPHILS ABSOLUTE AUTO 8.79 K/mm3 (1.96-9.15); NEUTROPHILS PERCENT AUTO 66 % (41-73); Platelet Count 275 K/mm3 (150-400); RDW Coefficient Variation 13.8 % (11.7-14.2); RDW Standard Deviation 46.3 fL (35.1-46.3); Red Blood Cell Count 4.39 M/mm3 (3.80-5.20); White Blood Cell Count 13.37 K/mm3 (4.00-11.30)
[2017-11-23 17:05] LABS: Alanine Aminotransfer (ALT/SGP 30 U/L (12-78); Albumin, Blood 3.4 g/dL (3.4-5.0); Albumin/Globulin Ratio 0.9 (0.8-1.8); Alk Phos 76 U/L (50-136); Anion Gap 9 mmol/L (6-16); Aspartate Aminotrans (AST/SGOT 24 U/L (12-37); Bilirubin, Total 0.2 mg/dL (0.1-1.0); Blood Urea Nitrogen 11 mg/dL (8-24); Bun/Creatinine Ratio 12.3 (12.0-20.0); CO2, Blood 25 mmol/L (21-32); Calcium, Blood 10.2 mg/dL (8.5-10.1); Chloride, Blood 107 mmol/L (98-108); Creatinine, Blood 0.89 mg/dL (0.40-1.00); Globulin, Blood 3.8 g/dL (2.2-4.0); Glomerular Filtration Rate >60 (60-); Glucose, Blood 97 mg/dL (70-99); Potassium, Blood 3.8 mmol/L (3.5-5.5); Sodium, Blood 141 mmol/L (136-145); Total Protein, Blood 7.2 g/dL (6.4-8.2); Troponin I <0.015 ng/mL (0.000-0.040)
[2017-11-23] MEDS ORDERED: PRED20 PO (19:16)
== END 2017-11-23 19:30 | disposition home or self-care (01) ==
LOC: ER 16:16
PROVIDERS: Emergency Medicine
DX: J44.1 Chronic obstructive pulmonary disease with (acute) exacerbation (principal); J44.0 Chronic obstructive pulmonary disease with (acute) lower respiratory infection; J20.9 Acute bronchitis, unspecified; Z87.891 Personal history of nicotine dependence; Z91.048 Other nonmedicinal substance allergy status; Z79.899 Other long term (current) drug therapy
CPT/HCPCS: 36415; 71046; 80053; 83880; 84484; 85025; 93005; 93010; 94644; 96361; 96374; 96375; 99284-25; J2405; J2930; J3475; J7030

== ENCOUNTER → 2018-02-17 | Outpatient (CLI) | payer OTHER ==
[2018-02-17 18:11] LABS: Appearance, Urine Clear (Clear); Bilirubin, Urine Neg (Neg); Blood, Urine Neg (Neg); Color, Urine Yellow (P-Yellow); Glucose Qualitative, Urine Neg (Neg); Ketones, Urine Neg (Neg); Leukocyte Esterase, Urine Neg (Neg); Nitrite, Urine Neg (Neg); Protein, Urine Neg (Neg); Urobilinogen, Urine NORM (Normal)
[2018-02-17 19:32] LABS: Alanine Aminotransfer (ALT/SGP 34 U/L (12-78); Albumin, Blood 3.6 g/dL (3.4-5.0); Alk Phos 84 U/L (50-136); Anion Gap 6 mmol/L (6-16); Aspartate Aminotrans (AST/SGOT 27 U/L (12-37); Bilirubin, Total 0.3 mg/dL (0.1-1.0); Blood Urea Nitrogen 10 mg/dL (8-24); Bun/Creatinine Ratio 11.5 (12.0-20.0); CO2, Blood 29 mmol/L (21-32); Chloride, Blood 106 mmol/L (98-108); Creatinine, Blood 0.87 mg/dL (0.40-1.00); Globulin, Blood 3.7 g/dL (2.2-4.0); Glomerular Filtration Rate >60 (60-); Glucose, Blood 111 mg/dL (70-99); Potassium, Blood 4.1 mmol/L (3.5-5.5); Sodium, Blood 141 mmol/L (136-145); Total Protein, Blood 7.3 g/dL (6.4-8.2)
== END ==
LOC: LAB 11:00 → LAB SHORT 11:00
PROVIDERS: Internal Medicine Hematology & Oncology
DX: C90.00 Multiple myeloma not having achieved remission (principal); N39.0 Urinary tract infection, site not specified
CPT/HCPCS: 80053; 81003

== ENCOUNTER → 2018-02-23 | Outpatient (CLI) | payer OTHER ==
[2018-02-23 14:14] LABS: Alanine Aminotransfer (ALT/SGP 35 U/L (12-78); Albumin, Blood 3.6 g/dL (3.4-5.0); Alk Phos 73 U/L (50-136); Anion Gap 9 mmol/L (6-16); Aspartate Aminotrans (AST/SGOT 26 U/L (12-37); Bilirubin, Total 0.3 mg/dL (0.1-1.0); Blood Urea Nitrogen 9 mg/dL (8-24); CO2, Blood 25 mmol/L (21-32); Calcium, Blood 10.4 mg/dL (8.5-10.1); Chloride, Blood 106 mmol/L (98-108); Creatinine, Blood 0.82 mg/dL (0.40-1.00); Globulin, Blood 3.7 g/dL (2.2-4.0); Glomerular Filtration Rate >60 (60-); Glucose, Blood 120 mg/dL (70-99); Potassium, Blood 3.9 mmol/L (3.5-5.5); Sodium, Blood 140 mmol/L (136-145); Total Protein, Blood 7.3 g/dL (6.4-8.2)
== END | disposition home or self-care (01) ==
LOC: LAB SHORT 10:40 → LAB 10:40
PROVIDERS: Internal Medicine Hematology & Oncology
DX: C90.00 Multiple myeloma not having achieved remission (principal)
CPT/HCPCS: 80053

== ENCOUNTER → 2018-06-16 | Outpatient (CLI) | payer OTHER ==
[2018-06-16 16:43] LABS: Alanine Aminotransfer (ALT/SGP 33 U/L (12-78); Albumin, Blood 3.3 g/dL (3.4-5.0); Albumin/Globulin Ratio 0.7 (0.8-1.8); Alk Phos 66 U/L (50-136); Anion Gap 4 mmol/L (6-16); Aspartate Aminotrans (AST/SGOT 27 U/L (12-37); Bilirubin, Total 0.4 mg/dL (0.1-1.0); Blood Urea Nitrogen 10 mg/dL (8-24); Bun/Creatinine Ratio 10.4 (12.0-20.0); CO2, Blood 29 mmol/L (21-32); Calcium, Blood 9.5 mg/dL (8.5-10.1); Chloride, Blood 107 mmol/L (98-108); Creatinine, Blood 0.96 mg/dL (0.40-1.00); Globulin, Blood 4.8 g/dL (2.2-4.0); Glomerular Filtration Rate >60 (60-); Glucose, Blood 111 mg/dL (70-99); Potassium, Blood 4.1 mmol/L (3.5-5.5); Sodium, Blood 140 mmol/L (136-145); Total Protein, Blood 8.1 g/dL (6.4-8.2)
== END | disposition home or self-care (01) ==
LOC: LAB SHORT 14:52 → LAB 14:52
PROVIDERS: Internal Medicine Hematology & Oncology
DX: C90.00 Multiple myeloma not having achieved remission (principal)
CPT/HCPCS: 80053

== ENCOUNTER → 2018-07-14 | Outpatient (CLI) | payer OTHER ==
[2018-07-14 10:31] LABS: BASOPHILS ABSOLUTE AUTO 0.06 K/mm3 (0.00-0.23); BASOPHILS PERCENT AUTO 1 % (0-2); EOSINOPHILS ABSOLUTE AUTO 0.07 K/mm3 (0.00-0.68); EOSINOPHILS PERCENT AUTO 1 % (0-6); Hematocrit 42.1 % (33.0-51.0); Hemoglobin 13.4 g/dL (11.5-16.0); IMMATURE GRAN ABSOLUTE AUTO 0.03 K/mm3 (0.00-0.10); IMMATURE GRAN PERCENT AUTO 0 % (0-1); LYMPHOCYTES ABSOLUTE AUTO 2.98 K/mm3 (0.84-5.20); LYMPHOCYTES PERCENT AUTO 34 % (21-46); MONOCYTES ABSOLUTE AUTO 0.55 K/mm3 (0.16-1.47); MONOCYTES PERCENT AUTO 6 % (4-13); Mean Corpuscular HGB 30.2 pg (26.0-34.0); Mean Corpuscular HGB Conc 31.8 g/dL (31.5-36.5); Mean Corpuscular Volume 95 fL (80-100); Mean Platelet Volume 9.3 fL (9.1-12.4); NEUTROPHILS ABSOLUTE AUTO 5.03 K/mm3 (1.96-9.15); NEUTROPHILS PERCENT AUTO 58 % (41-73); Platelet Count 225 K/mm3 (150-400); Red Blood Cell Count 4.44 M/mm3 (3.80-5.20); White Blood Cell Count 8.72 K/mm3 (4.00-11.30)
[2018-07-14 11:13] LABS: Alanine Aminotransfer (ALT/SGP 34 U/L (12-78); Albumin, Blood 3.5 g/dL (3.4-5.0); Albumin/Globulin Ratio 0.6 (0.8-1.8); Alk Phos 71 U/L (50-136); Anion Gap 7 mmol/L (6-16); Aspartate Aminotrans (AST/SGOT 27 U/L (12-37); Bilirubin, Total 0.5 mg/dL (0.1-1.0); Blood Urea Nitrogen 13 mg/dL (8-24); Bun/Creatinine Ratio 13.5 (12.0-20.0); CO2, Blood 25 mmol/L (21-32); Calcium, Blood 10.3 mg/dL (8.5-10.1); Chloride, Blood 108 mmol/L (98-108); Creatinine, Blood 0.96 mg/dL (0.40-1.00); Globulin, Blood 5.8 g/dL (2.2-4.0); Glomerular Filtration Rate >60 (60-); Glucose, Blood 121 mg/dL (70-99); Potassium, Blood 3.9 mmol/L (3.5-5.5); Sodium, Blood 140 mmol/L (136-145); Total Protein, Blood 9.3 g/dL (6.4-8.2)
== END | disposition home or self-care (01) ==
LOC: LAB SHORT 10:19 → LAB 10:19
PROVIDERS: Internal Medicine Hematology & Oncology
DX: C90.00 Multiple myeloma not having achieved remission (principal)
CPT/HCPCS: 80053; 85025

== ENCOUNTER → 2018-07-28 | Outpatient (CLI) | payer OTHER ==
[2018-08-03 11:08] LABS: A/G RATIO 0.8 (0.7-1.7); ALBUMIN 3.8 g/dL (2.9-4.4); ALPHA-1-GLOBULIN 0.3 g/dL (0.0-0.4); ALPHA-2-GLOBULIN 0.8 g/dL (0.4-1.0); BETA GLOBULIN 0.9 g/dL (0.7-1.3); GAMMA GLOBULIN 3.3 g/dL (0.4-1.8); GLOBULIN, TOTAL 5.2 g/dL (2.2-3.9); IMMUNOGLOBULIN A, QN, SERUM 7 mg/dL (87-352); IMMUNOGLOBULIN G, QN, SERUM 3390 mg/dL (700-1600); IMMUNOGLOBULIN M, QN, SERUM <5 mg/dL (26-217); M-SPIKE 2.9 g/dL (Not Observed)
== END | disposition home or self-care (01) ==
LOC: LAB SHORT 13:48 → LAB 13:48
PROVIDERS: Internal Medicine Hematology & Oncology
DX: C90.00 Multiple myeloma not having achieved remission (principal)
CPT/HCPCS: 82784; 84165; 86334

== ENCOUNTER → 2018-08-11 | Outpatient (CLI) | payer OTHER ==
[2018-08-11 18:47] LABS: Alanine Aminotransfer (ALT/SGP 30 U/L (12-78); Albumin, Blood 3.3 g/dL (3.4-5.0); Albumin/Globulin Ratio 0.5 (0.8-1.8); Alk Phos 68 U/L (50-136); Anion Gap 2 mmol/L (6-16); Aspartate Aminotrans (AST/SGOT 25 U/L (12-37); Bilirubin, Total 0.4 mg/dL (0.1-1.0); Blood Urea Nitrogen 11 mg/dL (8-24); Bun/Creatinine Ratio 12.8 (12.0-20.0); CO2, Blood 30 mmol/L (21-32); Calcium, Blood 10.3 mg/dL (8.5-10.1); Chloride, Blood 107 mmol/L (98-108); Creatinine, Blood 0.86 mg/dL (0.40-1.00); Globulin, Blood 6.1 g/dL (2.2-4.0); Glomerular Filtration Rate >60 (60-); Glucose, Blood 103 mg/dL (70-99); Potassium, Blood 4.1 mmol/L (3.5-5.5); Sodium, Blood 139 mmol/L (136-145); Total Protein, Blood 9.4 g/dL (6.4-8.2)
== END | disposition home or self-care (01) ==
LOC: LAB 10:10 → LAB SHORT 10:10
PROVIDERS: Internal Medicine Hematology & Oncology
DX: C90.00 Multiple myeloma not having achieved remission (principal)
CPT/HCPCS: 80053

== ENCOUNTER 2018-08-16 12:11 | Inpatient (IN) | payer OTHER ==
[~2018-08-16] VITALS: Ht 160 cm; Wt 124.9 kg
[~2018-08-16 12:11] MED LIST changes: -BIOTIN5000 MC1 SL; +BIOTIN5000 MCG PO; +CHOL10002 PO; -ERGO400 PO; +MAGNEBIND PO; -MAGOXI400 PO
[2018-08-16 12:43] LABS: BASOPHILS ABSOLUTE AUTO 0.03 K/mm3 (0.00-0.23); BASOPHILS PERCENT AUTO 0 % (0-2); EOSINOPHILS PERCENT AUTO 0 % (0-6); Hematocrit 46.4 % (33.0-51.0); Hemoglobin 14.8 g/dL (11.5-16.0); IMMATURE GRAN ABSOLUTE AUTO 0.22 K/mm3 (0.00-0.10); IMMATURE GRAN PERCENT AUTO 1 % (0-1); LYMPHOCYTES ABSOLUTE AUTO 1.84 K/mm3 (0.84-5.20); LYMPHOCYTES PERCENT AUTO 9 % (21-46); MONOCYTES ABSOLUTE AUTO 1.19 K/mm3 (0.16-1.47); MONOCYTES PERCENT AUTO 6 % (4-13); Mean Corpuscular HGB 30.8 pg (26.0-34.0); Mean Corpuscular HGB Conc 31.9 g/dL (31.5-36.5); Mean Corpuscular Volume 97 fL (80-100); Mean Platelet Volume 9.7 fL (9.1-12.4); NEUTROPHILS ABSOLUTE AUTO 17.84 K/mm3 (1.96-9.15); NEUTROPHILS PERCENT AUTO 85 % (41-73); Platelet Count 246 K/mm3 (150-400); RDW Coefficient Variation 15.1 % (11.7-14.2); RDW Standard Deviation 54.4 fL (35.1-46.3); White Blood Cell Count 21.12 K/mm3 (4.00-11.30)
[2018-08-16 12:51] LABS: PCO2 Arterial 40.6 mmHg (35-45); pH Blood Arterial 7.46 (7.35-7.45)
[2018-08-16 12:57] LABS: Alanine Aminotransfer (ALT/SGP 42 U/L (12-78); Albumin, Blood 3.4 g/dL (3.4-5.0); Albumin/Globulin Ratio 0.6 (0.8-1.8); Alk Phos 66 U/L (50-136); Anion Gap 5 mmol/L (6-16); Aspartate Aminotrans (AST/SGOT 27 U/L (12-37); Bilirubin, Total 0.7 mg/dL (0.1-1.0); Blood Urea Nitrogen 24 mg/dL (8-24); Bun/Creatinine Ratio 28.3 (12.0-20.0); CO2, Blood 30 mmol/L (21-32); Chloride, Blood 105 mmol/L (98-108); Creatinine, Blood 0.85 mg/dL (0.40-1.00); Globulin, Blood 5.9 g/dL (2.2-4.0); Glomerular Filtration Rate >60 (60-); Glucose, Blood 74 mg/dL (70-99); Potassium, Blood 4.2 mmol/L (3.5-5.5); Sodium, Blood 140 mmol/L (136-145); Total Protein, Blood 9.3 g/dL (6.4-8.2); Troponin I <0.015 ng/mL (0.000-0.040)
[2018-08-16 14:17] LABS: Source, Urine Clean Catch
[2018-08-16 14:28] LABS: Appearance, Urine Clear (Clear); Bilirubin, Urine Neg (Neg); Blood, Urine Neg (Neg); Color, Urine Yellow (P-Yellow); Glucose Qualitative, Urine Neg (Neg); Ketones, Urine Neg (Neg); Leukocyte Esterase, Urine Neg (Neg); Nitrite, Urine Neg (Neg); Protein, Urine Neg (Neg); Specific Gravity, Urine 1.015 (1.003-1.022); Urobilinogen, Urine NORM (Normal)
[2018-08-16 15:16] LABS: Influenza A Negative (NEGATIVE); Influenza B Negative (NEGATIVE)
[2018-08-16] MEDS ORDERED: ALBU90OI61 INH (17:04)
[2018-08-16] MEDS ORDERED: BUDE6HFA INH (17:06)
[2018-08-16] MEDS ORDERED: AZIT250 PO (17:44)
[2018-08-16] MEDS ORDERED: ALBU2.5V5 INH (17:46)
[2018-08-16] MEDS ORDERED: FURO20 PO (17:49)
[2018-08-16] MEDS ORDERED: MAGOXI400 PO (18:34)
--- NOTE | 2018-08-16 19:14 | NUR ---
ADMISSION NOTE ASSUMED CARE AT APPROX 1800. PT BROUGHT UP IN STRETCHER, INCREASED WORK OF BREATHING BUT DENIED DISTRESS OR SOB. PT COMMENT "I AM FEELING SO MUCH BETTER THAN EARLIER". VSS UPON ARRIVAL TO UNIT. PT AMBULATED FROM STRETCHER TO PCU 3 BED AND TOLERATED WELL. PT VOIDED 500 ML IN BEDSIDE COMMODE AND TOLERATED WELL. ABX, OXYCODONE AND ATIVAN GIVEN AT APPROX 1845. LUNGS SOUNDS DIM WITH SLIGHT WHEEZE WITH EXHALE. BILAT RADIAL AND BILAT PEDAL PULSES STRONG. HANDOVER GIVEN TO REYES LITTLEJOHN AT 1920.
[2018-08-17 04:01] LABS: BASOPHILS ABSOLUTE AUTO 0.04 K/mm3 (0.00-0.23); BASOPHILS PERCENT AUTO 0 % (0-2); EOSINOPHILS PERCENT AUTO 0 % (0-6); Hemoglobin 12.2 g/dL (11.5-16.0); IMMATURE GRAN ABSOLUTE AUTO 0.17 K/mm3 (0.00-0.10); IMMATURE GRAN PERCENT AUTO 1 % (0-1); LYMPHOCYTES ABSOLUTE AUTO 0.45 K/mm3 (0.84-5.20); LYMPHOCYTES PERCENT AUTO 2 % (21-46); MONOCYTES ABSOLUTE AUTO 0.68 K/mm3 (0.16-1.47); MONOCYTES PERCENT AUTO 3 % (4-13); Mean Corpuscular HGB 30.8 pg (26.0-34.0); Mean Corpuscular HGB Conc 31.3 g/dL (31.5-36.5); Mean Corpuscular Volume 99 fL (80-100); Mean Platelet Volume 9.5 fL (9.1-12.4); NEUTROPHILS ABSOLUTE AUTO 25.15 K/mm3 (1.96-9.15); NEUTROPHILS PERCENT AUTO 95 % (41-73); Platelet Count 189 K/mm3 (150-400); RDW Coefficient Variation 15.4 % (11.7-14.2); RDW Standard Deviation 55.4 fL (35.1-46.3); Red Blood Cell Count 3.96 M/mm3 (3.80-5.20); White Blood Cell Count 26.49 K/mm3 (4.00-11.30)
[2018-08-17 04:18] LABS: Anion Gap 5 mmol/L (6-16); Blood Urea Nitrogen 23 mg/dL (8-24); Bun/Creatinine Ratio 30.4 (12.0-20.0); CO2, Blood 26 mmol/L (21-32); Calcium, Blood 9.2 mg/dL (8.5-10.1); Chloride, Blood 108 mmol/L (98-108); Creatinine, Blood 0.76 mg/dL (0.40-1.00); Glomerular Filtration Rate >60 (60-); Glucose, Blood 171 mg/dL (70-99); Potassium, Blood 4.2 mmol/L (3.5-5.5); Sodium, Blood 139 mmol/L (136-145)
--- NOTE | 2018-08-17 04:55 | NUR ---
SHIFT SUMMARY PT A&O X4, CALM AND COOPERATIVE. LUNG SOUNDS COARSE T/O. SPO2 > 92% ON 4L NC OR BIPAP 10/5, FIO2 40%, W/ PT WEARING BIPAP MAJORITY OF SHIFT. MONITOR SHOWS NSR, HR 60'S-70'S. PT C/O CHRONIC PAIN IN HEAD, NECK, AND BACK. PAIN TX'D PER EMAR. PT IN BED SLEEPING MAJORITY OF SHIFT. VSS. WILL CONTINUE TO MONITOR AND PROVIDE CARE UNTIL REPORT OFF TO DAY SHIFT RN.
--- NOTE | 2018-08-17 08:00 | NUR ---
pt sitting up on the side of the bed for breakfast, a/o x3, pleasant and cooperative with care, follows commands well, she is anxious and reports she is in pain, wants pain meds and ativan, she also has seroquel ordered. spoke with her about spacing this out a bit, she was agreeable, lungs are course t/o, reps even and unlabored, no cough noted at this time, is currently on 4 liters via n/c, hrr, tele in place running sr in the 60-70's, per monitor, see strip, no edema noted, ppp+2, cap refill <3sec, vs stable, afebrile, iv sites are clear and patent, btx4, abd flat soft nontender, voids without diff, skin c/w/d, marlen nichols call light in reach.
--- NOTE | 2018-08-17 12:30 | NUR ---
pt slept hard this am on bipap, she requested pain meds this was given as ordered, she is currently sitting up eating lunch. call light in reach.
--- NOTE | 2018-08-17 13:16 | NUR ---
The pt requested her bipap back on, and requests an ativan first. The pt does not appear to be in any distress, but states anxiety. She is pleasant in conversation, smiling and clearly expressing her needs and appreciation for care.
--- NOTE | 2018-08-17 14:59 | NUR ---
Patient was lying in bed with air support and alert when I entered the room. Patient immediately shared the about the recent poor prognosis with her cancer, her family unit complications and her emotional struggles. As I conducted a life review, patient began to tell the story of her waqar and she encouraged herself. I highlighted all that she has overcome and will continue to overcome, explored her resources and coping skills, provided pastoral social services counselor, companionship and prayer. Patient responded well to all interventions and showed signs of restored waqar.
--- NOTE | 2018-08-17 17:30 | NUR ---
PT COMPLAINING OF HER STOMACH BURNING WITH SOME MILD NAUSIA, ASKED FOR ZOFRAN. THIS WAS GIVEN WITH VERY LITTLE RELEIF, CALL TO DR. CORONA RECIEVED ORDER FOR MAALOX AND PROTONIX, THIS WAS GIVEN WITH MUCH RELIEF. PT SITTING UP EATING DINNER, NO FURTHER COMPLAINTS. CALL LIGHT IN REACH.
--- NOTE | 2018-08-17 18:10 | NUR ---
PT UPSET, AGGITATED, ASKING FOR ATIVAN. EXPLAINED TO HER THAT IT IS ORDERED ONCE A DAY, AND SHE HAD IT AT 1300. SHE SAID SHE TAKES IT 3-4 TIMES A DAY AT HOME. CALL TO DR. CORONA, HE ORDERED IT Q6P, INFORMED HER OF THIS, SHE OK TO WAIT AN HR. NO FURTHER CHANGES THIS SHIFT, CALL LIGHT IN REACH.
--- NOTE | 2018-08-17 20:11 | NUR ---
Initial Visit: Palliative Care Consult for Symptom Management. Pt reports 6/10 pain in her head, neck, and back. She reports that she will be receiving her pain medication soon and current regimen is managing her pain. She also reports her anxiety and dyspnea are managed with current regimen. Engaged in therapeutic conversation about goals of care. Pt appears to want a short visit as evidenced by attempting to predict this RN's questions. Pt reports that she has adequate support at home and has caregivers that assist 6 days a week. She reports current AD/POLST are still her wishes. Engaged in discussion about disease process and Pt current treatment for her cancer did not go according to plan but is optimistic that Dr Peters will be able to continue keeping her cancer from progressing too quickly. Suggested to Pt to have her daughter accompany her to her next appointment to assist her with any questions she has or to aid in communication with . Pt reports no concerns at this time. Will remain available.
--- NOTE | 2018-08-18 11:27 | NUR ---
BEGINNING OF SHIFT Assumed care at 0700. Report recieved from Mary LITTLEJOHN. Pt on BiPAP, wears 3 LPM when she is not on BiPAP. Pt states baseline O2 use is 3 LPM NC. Pt switched to M series BiPAP. Okay to go to medical floor per Dr White. Bed in lowest position. Call light in reach. Pt denies need at this time.
--- NOTE | 2018-08-18 17:01 | NUR ---
PATIENT TRANSFER THE PATIENT WAS TRANSFERRED TO THE MEDICAL FLOOR, ROOM #341 FROM PCU #6 AFTER REPORT CALLED IN FROM THE PCU NURSE. THE PATIENT ARRIVED ON THE FLOOR VIA WHEELCHAIR, A&O X4, AND A ONE PERSON ASSIST.THE PATIENT HAS CRONIC PAIN AND ASKED ABOUT HER NEXT PAIN MEDICATION. THE PATIENT IS RESTING IN HER ROOM AT THIS TIME, WILL CONTINUE TO MONITOR.
[2018-08-19 05:17] LABS: BASOPHILS ABSOLUTE AUTO 0.05 K/mm3 (0.00-0.23); BASOPHILS PERCENT AUTO 0 % (0-2); EOSINOPHILS PERCENT AUTO 0 % (0-6); Hemoglobin 12.3 g/dL (11.5-16.0); IMMATURE GRAN ABSOLUTE AUTO 0.56 K/mm3 (0.00-0.10); IMMATURE GRAN PERCENT AUTO 3 % (0-1); LYMPHOCYTES PERCENT AUTO 4 % (21-46); MONOCYTES ABSOLUTE AUTO 0.68 K/mm3 (0.16-1.47); MONOCYTES PERCENT AUTO 4 % (4-13); Mean Corpuscular HGB 30.4 pg (26.0-34.0); Mean Corpuscular HGB Conc 30.8 g/dL (31.5-36.5); Mean Corpuscular Volume 99 fL (80-100); Mean Platelet Volume 9.7 fL (9.1-12.4); NEUTROPHILS ABSOLUTE AUTO 17.66 K/mm3 (1.96-9.15); NEUTROPHILS PERCENT AUTO 90 % (41-73); Platelet Count 212 K/mm3 (150-400); RDW Standard Deviation 56.1 fL (35.1-46.3); Red Blood Cell Count 4.04 M/mm3 (3.80-5.20); White Blood Cell Count 19.65 K/mm3 (4.00-11.30)
[2018-08-19 05:54] LABS: Anion Gap 5 mmol/L (6-16); Blood Urea Nitrogen 29 mg/dL (8-24); Bun/Creatinine Ratio 29.7 (12.0-20.0); CO2, Blood 29 mmol/L (21-32); Calcium, Blood 10.2 mg/dL (8.5-10.1); Chloride, Blood 106 mmol/L (98-108); Creatinine, Blood 0.98 mg/dL (0.40-1.00); Glomerular Filtration Rate >60 (60-); Glucose, Blood 168 mg/dL (70-99); Potassium, Blood 4.5 mmol/L (3.5-5.5); Sodium, Blood 140 mmol/L (136-145)
--- NOTE | 2018-08-19 07:15 | NUR ---
a+o, call light in reach, infusing with no s/sx of infection, 4L via nc, walking rounds completed with day staff
--- NOTE | 2018-08-19 11:24 | NUR ---
HOSPITALIST ROUNDED ON PT PT CONTINUING TO IMPROVE DAILY. HOSPITALIST EXAMINED PT. PT HAD NO COMPLAINTS OF DISCOMFORT OR S/SX. PLAN IS EXPECTED DISCHARGE TOMORROW IF IMPROVEMENT CONTINUES.
--- NOTE | 2018-08-19 16:30 | NUR ---
SHIFT SUMMARY 58 YR OLD FEMALE ADMITTED FOR COPE(D?) EXACERBATION. PT IS ON 3 LPM O2 VIA NC, CPAP AT NIGHT. SHE IS A&O X4. SHE HAS SCHEDULED PAIN MEDICATION AND PRN PAIN MEDICATION FOR BREAKTHROUGH PAIN. RUNNING NS IV TO KVO THIS PT CLOTS OFF IV'S EASILY AND IS A DIFFICULT START. SHE MAY DC TOMORROW AND SHOULD HAVE A RIDE ARRANGED WITH O2. SHE HAS A HOME CAREGIVER TO ASSIST HER 2X'S/WEEK. HOSPITALIST PLANS TO ADJUST STEROID AND ANTIBIOTIC DOSEAGES.
--- NOTE | 2018-08-20 04:48 | NUR ---
58 year old Female with long hx of copd and resp failure encouraged to stop smoking. hx of FRANCES and uses baseline oxygen 3 l and cpap . chronic pain and anxiety medicated for both with helpful effect. up indep in room continues on iv zosyn to treat pneumonia.
[2018-08-20 06:27] LABS: Hematocrit 38.1 % (33.0-51.0); Hemoglobin 11.6 g/dL (11.5-16.0); Mean Corpuscular HGB 30.7 pg (26.0-34.0); Mean Corpuscular HGB Conc 30.4 g/dL (31.5-36.5); Mean Corpuscular Volume 101 fL (80-100); Mean Platelet Volume 9.7 fL (9.1-12.4); Platelet Count 196 K/mm3 (150-400); RDW Coefficient Variation 15.1 % (11.7-14.2); RDW Standard Deviation 56.9 fL (35.1-46.3); Red Blood Cell Count 3.78 M/mm3 (3.80-5.20); White Blood Cell Count 11.94 K/mm3 (4.00-11.30)
[2018-08-20 07:12] LABS: BAND PERCENT MAN 1 % (0-8); BASOPHILS PERCENT MAN 0 % (0-2); EOSINOPHILS PERCENT MAN 0 % (0-6); LYMPHOCYTES ABSOLUTE MAN 0.71 K/mm3 (0.84-5.20); LYMPHOCYTES PERCENT MAN 6 % (21-46); MONOCYTES ABSOLUTE MAN 0.71 K/mm3 (0.16-1.47); MONOCYTES PERCENT MAN 6 % (4-13); SEG NEUTROPHILS PERCENT MAN 87 % (41-73); TOTAL CELLS COUNTED 100
[2018-08-20] MEDS ORDERED: PRED20 PO (11:38)
[2018-08-20] MEDS ORDERED: MUCUS RELIEF600 MG PO (11:46)
[2018-08-20] MEDS ORDERED: ACIDOPHILUS1 EACH PO (11:47)
[2018-08-20] MEDS ORDERED: Augmentin 875-1 EACH PO (11:48)
--- NOTE | 2018-08-20 15:26 | NUR ---
PATIENT DISCHARGE: PATIENT DISCHARGED TO HOME THIS SHIFT. MEDICATION RECONCILIATION COMPLETED; MED LIST FAXED TO [facility]. DISCHARGE EDUCATION COMPLETED WITH PATIENT. PATIENT TRANSPORTED TO EXIT BY [facility] STAFF WITH WHEELCHAIR AT 1525. PATIENT DEPARTED [facility] VIA PRIVATE AUTO.
== END 2018-08-20 15:24 | disposition home or self-care (01) | DRG 871 ==
LOC: ER 12:11 → PCU 16:46 → MEDS 08-18 16:46 → ENPENDDIS 08-20 10:00 → MEDS 08-20 15:24
PROVIDERS: Emergency Medicine; ADMIT Internal Medicine
DX: A41.9 Sepsis, unspecified organism (principal); J96.21 Acute and chronic respiratory failure with hypoxia; J44.1 Chronic obstructive pulmonary disease with (acute) exacerbation; C90.00 Multiple myeloma not having achieved remission; R65.20 Severe sepsis without septic shock; G47.33 Obstructive sleep apnea (adult) (pediatric); G89.29 Other chronic pain; Z51.5 Encounter for palliative care; Z99.81 Dependence on supplemental oxygen; M81.0 Age-related osteoporosis without current pathological fracture; F17.200 Nicotine dependence, unspecified, uncomplicated; Z79.891 Long term (current) use of opiate analgesic; Z79.52 Long term (current) use of systemic steroids; Z79.899 Other long term (current) drug therapy
CPT/HCPCS: 36415; 36600; 71045; 80048; 80053; 81003; 82803; 83605; 83880; 84145; 84484; 85025; 87040; 87070; 87205; 87804; 93005; 93010; 94640; 94644; 94645; 94660; 94762; 96361; 96374; 99285-25; J1650; J2405; J2543; J2930; J7030; J7040; J7050; J7120

== ENCOUNTER → 2018-09-21 | Outpatient (CLI) | payer OTHER ==
[~2018-09-21] MED LIST changes: +ACIDOPHILUS1 EACH PO; +ALBU2.5V5 INH; +Augmentin 875-1 EACH PO; +BUDE6HFA INH; +MAGOXI400 PO; +MUCUS RELIEF600 MG PO
[2018-09-21 11:40] LABS: Alanine Aminotransfer (ALT/SGP 37 U/L (12-78); Albumin, Blood 3.6 g/dL (3.4-5.0); Albumin/Globulin Ratio 0.9 (0.8-1.8); Alk Phos 86 U/L (50-136); Anion Gap 5 mmol/L (6-16); Aspartate Aminotrans (AST/SGOT 25 U/L (12-37); Bilirubin, Total 0.4 mg/dL (0.1-1.0); Blood Urea Nitrogen 20 mg/dL (8-24); CO2, Blood 32 mmol/L (21-32); Calcium, Blood 10.3 mg/dL (8.5-10.1); Chloride, Blood 103 mmol/L (98-108); Creatinine, Blood 0.95 mg/dL (0.40-1.00); Globulin, Blood 3.9 g/dL (2.2-4.0); Glomerular Filtration Rate >60 (60-); Glucose, Blood 128 mg/dL (70-99); Potassium, Blood 3.7 mmol/L (3.5-5.5); Sodium, Blood 140 mmol/L (136-145); Total Protein, Blood 7.5 g/dL (6.4-8.2)
[2018-09-21 11:50] LABS: Lactate Dehydrogenase (Ld),Bld 185 U/L (100-240)
== END | disposition home or self-care (01) ==
LOC: LAB 10:59 → LAB SHORT 10:59
PROVIDERS: Internal Medicine Hematology & Oncology
DX: C90.00 Multiple myeloma not having achieved remission (principal)
CPT/HCPCS: 80053; 83615

== ENCOUNTER → 2018-09-28 | Outpatient (CLI) | payer OTHER ==
[2018-09-28 13:19] LABS: Albumin, Blood 3.3 g/dL (3.4-5.0); Bilirubin, Total 0.5 mg/dL (0.1-1.0); Bun/Creatinine Ratio 18.7 (12.0-20.0); Calcium, Blood 10.4 mg/dL (8.5-10.1); Creatinine, Blood 1.23 mg/dL (0.40-1.00); Globulin, Blood 3.3 g/dL (2.2-4.0); Potassium, Blood 3.6 mmol/L (3.5-5.5); Total Protein, Blood 6.6 g/dL (6.4-8.2)
== END | disposition home or self-care (01) ==
LOC: LAB 12:35 → LAB SHORT 12:35
PROVIDERS: Internal Medicine Hematology & Oncology
DX: C90.00 Multiple myeloma not having achieved remission (principal)
CPT/HCPCS: 80053

== ENCOUNTER → 2018-10-06 | Outpatient (CLI) | payer OTHER ==
[2018-10-06 20:40] LABS: Albumin, Blood 3.5 g/dL (3.4-5.0); Albumin/Globulin Ratio 1.2 (0.8-1.8); Bilirubin, Total 0.5 mg/dL (0.1-1.0); Bun/Creatinine Ratio 13.3 (12.0-20.0); Calcium, Blood 11.2 mg/dL (8.5-10.1); Creatinine, Blood 1.5 mg/dL (0.40-1.00); Globulin, Blood 2.8 g/dL (2.2-4.0); Potassium, Blood 3.7 mmol/L (3.5-5.5); Total Protein, Blood 6.3 g/dL (6.4-8.2)
== END | disposition home or self-care (01) ==
LOC: LAB SHORT 19:41 → LAB 19:41
PROVIDERS: Internal Medicine Hematology & Oncology
DX: C90.00 Multiple myeloma not having achieved remission (principal)
CPT/HCPCS: 80053

== ENCOUNTER → 2018-10-13 | Outpatient (CLI) | payer OTHER ==
[2018-10-13 18:36] LABS: Albumin, Blood 3.6 g/dL (3.4-5.0); Albumin/Globulin Ratio 1.3 (0.8-1.8); Bilirubin, Total 0.4 mg/dL (0.1-1.0); Bun/Creatinine Ratio 13.6 (12.0-20.0); Calcium, Blood 9.3 mg/dL (8.5-10.1); Creatinine, Blood 1.18 mg/dL (0.40-1.00); Globulin, Blood 2.7 g/dL (2.2-4.0); Potassium, Blood 3.7 mmol/L (3.5-5.5); Total Protein, Blood 6.3 g/dL (6.4-8.2)
== END | disposition home or self-care (01) ==
LOC: LAB 13:38 → LAB SHORT 13:38
PROVIDERS: Internal Medicine Hematology & Oncology
DX: E83.52 Hypercalcemia (principal)
CPT/HCPCS: 80053

== ENCOUNTER → 2018-10-26 | Outpatient (CLI) | payer OTHER ==
[2018-10-26 19:11] LABS: Albumin, Blood 3.5 g/dL (3.4-5.0); Albumin/Globulin Ratio 1.3 (0.8-1.8); Bilirubin, Total 0.4 mg/dL (0.1-1.0); Bun/Creatinine Ratio 18.3 (12.0-20.0); Calcium, Blood 10.5 mg/dL (8.5-10.1); Creatinine, Blood 1.2 mg/dL (0.40-1.00); Globulin, Blood 2.6 g/dL (2.2-4.0); Potassium, Blood 3.9 mmol/L (3.5-5.5); Total Protein, Blood 6.1 g/dL (6.4-8.2)
== END | disposition home or self-care (01) ==
LOC: LAB SHORT 17:45 → LAB 17:45
PROVIDERS: Internal Medicine Hematology & Oncology
DX: C90.00 Multiple myeloma not having achieved remission (principal)
CPT/HCPCS: 80053

== ENCOUNTER → 2018-11-10 | Outpatient (CLI) | payer OTHER ==
[~2018-11-10] MED LIST changes: +XARELTO1 EACH PO
[2018-11-10 18:20] LABS: Albumin, Blood 3.5 g/dL (3.4-5.0); Albumin/Globulin Ratio 1.3 (0.8-1.8); Bilirubin, Total 0.7 mg/dL (0.1-1.0); Bun/Creatinine Ratio 14.5 (12.0-20.0); Calcium, Blood 9.5 mg/dL (8.5-10.1); Creatinine, Blood 1.1 mg/dL (0.40-1.00); Globulin, Blood 2.6 g/dL (2.2-4.0); Potassium, Blood 3.1 mmol/L (3.5-5.5); Total Protein, Blood 6.1 g/dL (6.4-8.2)
== END | disposition home or self-care (01) ==
LOC: LAB 16:30 → LAB SHORT 16:30
PROVIDERS: Internal Medicine Hematology & Oncology
DX: C90.00 Multiple myeloma not having achieved remission (principal); E83.52 Hypercalcemia; J44.0 Chronic obstructive pulmonary disease with (acute) lower respiratory infection; J18.9 Pneumonia, unspecified organism
CPT/HCPCS: 80053; 83615; 87070; 87205

== ENCOUNTER → 2018-11-15 | Outpatient (CLI) | payer OTHER ==
[2018-11-15 10:33] LABS: Albumin, Blood 3.6 g/dL (3.4-5.0); Albumin/Globulin Ratio 1.4 (0.8-1.8); Bilirubin, Total 0.7 mg/dL (0.1-1.0); Bun/Creatinine Ratio 15.8 (12.0-20.0); Creatinine, Blood 1.14 mg/dL (0.40-1.00); Globulin, Blood 2.6 g/dL (2.2-4.0); Total Protein, Blood 6.2 g/dL (6.4-8.2)
[2018-11-15 12:28] LABS: Magnesium, Blood 2.2 mg/dL (1.6-2.4)
== END | disposition home or self-care (01) ==
LOC: LAB 10:12 → LAB SHORT 10:12
PROVIDERS: Internal Medicine Hematology & Oncology
DX: C90.00 Multiple myeloma not having achieved remission (principal); E83.52 Hypercalcemia
CPT/HCPCS: 80053; 83735

== ENCOUNTER → 2018-12-01 | Outpatient (CLI) | payer OTHER ==
[2018-12-01 19:43] LABS: Albumin, Blood 3.5 g/dL (3.4-5.0); Albumin/Globulin Ratio 1.5 (0.8-1.8); Bilirubin, Total 0.4 mg/dL (0.1-1.0); Bun/Creatinine Ratio 15.5 (12.0-20.0); Calcium, Blood 10.1 mg/dL (8.5-10.1); Creatinine, Blood 1.29 mg/dL (0.40-1.00); Globulin, Blood 2.3 g/dL (2.2-4.0); Potassium, Blood 3.2 mmol/L (3.5-5.5); Total Protein, Blood 5.8 g/dL (6.4-8.2)
== END | disposition home or self-care (01) ==
LOC: LAB SHORT 10:30 → LAB 10:30
PROVIDERS: Internal Medicine Hematology & Oncology
DX: E83.52 Hypercalcemia (principal)
CPT/HCPCS: 80053

== ENCOUNTER → 2018-12-06 | Outpatient (CLI) | payer OTHER ==
[2018-12-06 12:45] LABS: Calcium, Blood 9.1 mg/dL (8.5-10.1); Creatinine, Blood 1.36 mg/dL (0.40-1.00); Potassium, Blood 2.8 mmol/L (3.5-5.5)
[2018-12-06 12:46] LABS: BASOPHILS ABSOLUTE AUTO 0.05 K/mm3 (0.00-0.23); BASOPHILS PERCENT AUTO 1 % (0-2); EOSINOPHILS ABSOLUTE AUTO 0.21 K/mm3 (0.00-0.68); EOSINOPHILS PERCENT AUTO 3 % (0-6); Hematocrit 37.8 % (33.0-51.0); Hemoglobin 12.6 g/dL (11.5-16.0); IMMATURE GRAN ABSOLUTE AUTO 0.07 K/mm3 (0.00-0.10); IMMATURE GRAN PERCENT AUTO 1 % (0-1); LYMPHOCYTES ABSOLUTE AUTO 1.71 K/mm3 (0.84-5.20); LYMPHOCYTES PERCENT AUTO 23 % (21-46); MONOCYTES ABSOLUTE AUTO 0.84 K/mm3 (0.16-1.47); MONOCYTES PERCENT AUTO 11 % (4-13); Mean Corpuscular HGB 29.5 pg (26.0-34.0); Mean Corpuscular HGB Conc 33.3 g/dL (31.5-36.5); Mean Corpuscular Volume 89 fL (80-100); NEUTROPHILS ABSOLUTE AUTO 4.54 K/mm3 (1.96-9.15); NEUTROPHILS PERCENT AUTO 61 % (41-73); RDW Coefficient Variation 14.5 % (11.7-14.2); RDW Standard Deviation 46.2 fL (35.1-46.3); Red Blood Cell Count 4.27 M/mm3 (3.80-5.20); White Blood Cell Count 7.42 K/mm3 (4.00-11.30)
[2018-12-06 14:08] LABS: Mean Platelet Volume 10.9 fL (9.1-12.4); Platelet Count 137 K/mm3 (150-400)
== END | disposition home or self-care (01) ==
LOC: LAB SHORT 12:36 → LAB EV 12:36
PROVIDERS: Family Medicine
DX: L03.90 Cellulitis, unspecified (principal)
CPT/HCPCS: 80048; 85025

== ENCOUNTER 2018-12-07 11:29 | Emergency (ER) | payer OTHER ==
[~2018-12-07] VITALS: Ht 152.4 cm; Wt 108.4 kg
[~2018-12-07 11:29] MED LIST changes: -XARELTO1 EACH PO
[2018-12-07] MEDS ORDERED: XARELTO1 EACH PO (13:51)
== END 2018-12-07 14:07 | disposition home or self-care (01) ==
LOC: ER 11:29 → VAS 11:29 → ER 14:07
DX: I82.4Z2 Acute embolism and thrombosis of unspecified deep veins of left distal lower extremity (principal); J44.9 Chronic obstructive pulmonary disease, unspecified; M81.0 Age-related osteoporosis without current pathological fracture; M19.90 Unspecified osteoarthritis, unspecified site; F43.10 Post-traumatic stress disorder, unspecified; Z87.891 Personal history of nicotine dependence; Z79.899 Other long term (current) drug therapy
CPT/HCPCS: 93970; 99283

== ENCOUNTER → 2019-01-26 | Outpatient (CLI) | payer OTHER ==
[~2019-01-26] MED LIST changes: +XARELTO1 EACH PO
[2019-01-26 10:58] LABS: Albumin, Blood 3.7 g/dL (3.4-5.0); Albumin/Globulin Ratio 1.3 (0.8-1.8); Bilirubin, Total 0.5 mg/dL (0.1-1.0); Bun/Creatinine Ratio 14.8 (12.0-20.0); Calcium, Blood 11.2 mg/dL (8.5-10.1); Creatinine, Blood 1.82 mg/dL (0.40-1.00); Globulin, Blood 2.8 g/dL (2.2-4.0); Potassium, Blood 3.7 mmol/L (3.5-5.5); Total Protein, Blood 6.5 g/dL (6.4-8.2)
== END ==
LOC: LAB 09:50 → LAB SHORT 09:50
PROVIDERS: Internal Medicine Hematology & Oncology
DX: C90.00 Multiple myeloma not having achieved remission (principal)
CPT/HCPCS: 80053

== ENCOUNTER → 2019-02-09 | Outpatient (CLI) | payer OTHER ==
[2019-02-09 15:59] LABS: Albumin, Blood 3.5 g/dL (3.4-5.0); Albumin/Globulin Ratio 1.3 (0.8-1.8); Bilirubin, Total 0.4 mg/dL (0.1-1.0); Bun/Creatinine Ratio 16.7 (12.0-20.0); Calcium, Blood 9.1 mg/dL (8.5-10.1); Creatinine, Blood 1.62 mg/dL (0.40-1.00); Globulin, Blood 2.7 g/dL (2.2-4.0); Potassium, Blood 3.4 mmol/L (3.5-5.5); Total Protein, Blood 6.2 g/dL (6.4-8.2)
[2019-02-14 14:06] LABS: A/G RATIO 1.4 (0.7-1.7); ALBUMIN 3.3 g/dL (2.9-4.4); ALPHA-1-GLOBULIN 0.3 g/dL (0.0-0.4); ALPHA-2-GLOBULIN 0.6 g/dL (0.4-1.0); BETA GLOBULIN 0.8 g/dL (0.7-1.3); GAMMA GLOBULIN 0.8 g/dL (0.4-1.8); GLOBULIN, TOTAL 2.5 g/dL (2.2-3.9); IMMUNOGLOBULIN A, QN, SERUM 15 mg/dL (87-352); IMMUNOGLOBULIN G, QN, SERUM 911 mg/dL (700-1600); IMMUNOGLOBULIN M, QN, SERUM <5 mg/dL (26-217); M-SPIKE 0.6 g/dL (Not Observed); PROTEIN, TOTAL, SERUM 5.8 g/dL (6.0-8.5)
== END | disposition home or self-care (01) ==
LOC: LAB SHORT 12:24 → LAB 12:24
PROVIDERS: Internal Medicine Hematology & Oncology
DX: C90.00 Multiple myeloma not having achieved remission (principal)
CPT/HCPCS: 80053; 82784; 83615; 83883; 84155; 84165; 86334

== ENCOUNTER → 2019-04-26 | Outpatient (CLI) | payer OTHER ==
[2019-04-26 12:33] LABS: Albumin, Blood 3.4 g/dL (3.4-5.0); Bilirubin, Total 0.3 mg/dL (0.1-1.0); Bun/Creatinine Ratio 16.8 (12.0-20.0); Creatinine, Blood 1.55 mg/dL (0.40-1.00); Globulin, Blood 3.3 g/dL (2.2-4.0); Potassium, Blood 3.6 mmol/L (3.5-5.5); Total Protein, Blood 6.7 g/dL (6.4-8.2)
[2019-04-28 16:06] LABS: A/G RATIO 1.2 (0.7-1.7); ALBUMIN 3.2 g/dL (2.9-4.4); ALPHA-1-GLOBULIN 0.2 g/dL (0.0-0.4); ALPHA-2-GLOBULIN 0.5 g/dL (0.4-1.0); BETA GLOBULIN 0.7 g/dL (0.7-1.3); GAMMA GLOBULIN 1.4 g/dL (0.4-1.8); GLOBULIN, TOTAL 2.9 g/dL (2.2-3.9); IMMUNOGLOBULIN A, QN, SERUM 8 mg/dL (87-352); IMMUNOGLOBULIN G, QN, SERUM 1625 mg/dL (700-1600); IMMUNOGLOBULIN M, QN, SERUM <5 mg/dL (26-217); M-SPIKE 1.2 g/dL (Not Observed); PROTEIN, TOTAL, SERUM 6.1 g/dL (6.0-8.5)
== END | disposition home or self-care (01) ==
LOC: LAB SHORT 11:47 → LAB 11:47
PROVIDERS: Internal Medicine Hematology & Oncology
DX: C90.00 Multiple myeloma not having achieved remission (principal)
CPT/HCPCS: 80053; 82784; 83615; 83883; 84155; 84165; 86334

== ENCOUNTER → 2019-06-14 | Outpatient (CLI) | payer OTHER ==
[2019-06-14 12:03] LABS: Albumin, Blood 3.4 g/dL (3.4-5.0); Albumin/Globulin Ratio 0.9 (0.8-1.8); Bilirubin, Total 0.4 mg/dL (0.1-1.0); Bun/Creatinine Ratio 17.7 (12.0-20.0); Calcium, Blood 10.7 mg/dL (8.5-10.1); Creatinine, Blood 1.3 mg/dL (0.40-1.00); Globulin, Blood 3.8 g/dL (2.2-4.0); Potassium, Blood 4.6 mmol/L (3.5-5.5); Total Protein, Blood 7.2 g/dL (6.4-8.2)
[2019-06-16 15:07] LABS: A/G RATIO 1.1 (0.7-1.7); ALBUMIN 3.5 g/dL (2.9-4.4); ALPHA-1-GLOBULIN 0.3 g/dL (0.0-0.4); ALPHA-2-GLOBULIN 0.7 g/dL (0.4-1.0); BETA GLOBULIN 0.9 g/dL (0.7-1.3); GAMMA GLOBULIN 1.6 g/dL (0.4-1.8); GLOBULIN, TOTAL 3.5 g/dL (2.2-3.9); IMMUNOGLOBULIN A, QN, SERUM <5 mg/dL (87-352); IMMUNOGLOBULIN G, QN, SERUM 1654 mg/dL (700-1600); IMMUNOGLOBULIN M, QN, SERUM <5 mg/dL (26-217); M-SPIKE 1.3 g/dL (Not Observed)
== END ==
LOC: LAB 10:00 → LAB SHORT 10:00
PROVIDERS: Internal Medicine Hematology & Oncology
DX: C90.02 Multiple myeloma in relapse (principal)
CPT/HCPCS: 80053; 82784; 83615; 83883; 84155; 84165; 86334

== ENCOUNTER 2019-07-11 13:59 | Emergency (ER) | payer OTHER ==
[~2019-07-11] VITALS: Ht 172.7 cm; Wt 99.8 kg
[2019-07-11 14:27] LABS: BASOPHILS ABSOLUTE AUTO 0.07 K/mm3 (0.00-0.23); BASOPHILS PERCENT AUTO 1 % (0-2); EOSINOPHILS ABSOLUTE AUTO 0.07 K/mm3 (0.00-0.68); EOSINOPHILS PERCENT AUTO 1 % (0-6); Hematocrit 36.3 % (33.0-51.0); Hemoglobin 11.7 g/dL (11.5-16.0); IMMATURE GRAN ABSOLUTE AUTO 0.09 K/mm3 (0.00-0.10); IMMATURE GRAN PERCENT AUTO 1 % (0-1); LYMPHOCYTES ABSOLUTE AUTO 3.16 K/mm3 (0.84-5.20); LYMPHOCYTES PERCENT AUTO 31 % (21-46); MONOCYTES ABSOLUTE AUTO 0.98 K/mm3 (0.16-1.47); MONOCYTES PERCENT AUTO 10 % (4-13); Mean Corpuscular HGB 31.5 pg (26.0-34.0); Mean Corpuscular HGB Conc 32.2 g/dL (31.5-36.5); Mean Corpuscular Volume 98 fL (80-100); Mean Platelet Volume 9.3 fL (9.1-12.4); NEUTROPHILS ABSOLUTE AUTO 5.98 K/mm3 (1.96-9.15); NEUTROPHILS PERCENT AUTO 58 % (41-73); Platelet Count 240 K/mm3 (150-400); RDW Coefficient Variation 15.9 % (11.7-14.2); RDW Standard Deviation 56.4 fL (35.1-46.3); Red Blood Cell Count 3.71 M/mm3 (3.80-5.20); White Blood Cell Count 10.35 K/mm3 (4.00-11.30)
[2019-07-11 14:50] LABS: Alanine Aminotransfer (ALT/SGP 22 U/L (12-78); Albumin, Blood 3.5 g/dL (3.4-5.0); Albumin/Globulin Ratio 0.9 (0.8-1.8); Alk Phos 63 U/L (50-136); Anion Gap 3 mmol/L (6-16); Aspartate Aminotrans (AST/SGOT 18 U/L (12-37); Bilirubin, Total 0.4 mg/dL (0.1-1.0); Blood Urea Nitrogen 24 mg/dL (8-24); CO2, Blood 32 mmol/L (21-32); Chloride, Blood 104 mmol/L (98-108); Creatinine, Blood 1.09 mg/dL (0.40-1.00); Glomerular Filtration Rate 54 (60-); Glucose, Blood 101 mg/dL (70-99); Potassium, Blood 3.7 mmol/L (3.5-5.5); Sodium, Blood 139 mmol/L (136-145); Total Protein, Blood 7.5 g/dL (6.4-8.2); Troponin I <0.015 ng/mL (0.000-0.040)
== END 2019-07-11 17:21 | disposition home or self-care (01) ==
LOC: ER 13:59
PROVIDERS: Physician Assistant
DX: R07.89 Other chest pain (principal); J44.9 Chronic obstructive pulmonary disease, unspecified; G47.30 Sleep apnea, unspecified; Z91.048 Other nonmedicinal substance allergy status; Z79.899 Other long term (current) drug therapy; Z79.51 Long term (current) use of inhaled steroids
CPT/HCPCS: 71046; 80053; 83880; 84484; 85025; 93005; 93010; 99285-25

== ENCOUNTER → 2019-07-19 | Outpatient (CLI) | payer OTHER ==
[2019-07-19 11:21] LABS: Albumin, Blood 3.3 g/dL (3.4-5.0); Albumin/Globulin Ratio 0.9 (0.8-1.8); Bilirubin, Total 0.3 mg/dL (0.1-1.0); Bun/Creatinine Ratio 11.9 (12.0-20.0); Creatinine, Blood 1.43 mg/dL (0.40-1.00); Globulin, Blood 3.8 g/dL (2.2-4.0); Potassium, Blood 3.9 mmol/L (3.5-5.5); Total Protein, Blood 7.1 g/dL (6.4-8.2)
[2019-07-21 15:11] LABS: ALBUMIN 3.3 g/dL (2.9-4.4); ALPHA-1-GLOBULIN 0.2 g/dL (0.0-0.4); ALPHA-2-GLOBULIN 0.6 g/dL (0.4-1.0); BETA GLOBULIN 0.8 g/dL (0.7-1.3); GAMMA GLOBULIN 1.7 g/dL (0.4-1.8); GLOBULIN, TOTAL 3.4 g/dL (2.2-3.9); IMMUNOGLOBULIN A, QN, SERUM <5 mg/dL (87-352); IMMUNOGLOBULIN G, QN, SERUM 1994 mg/dL (700-1600); IMMUNOGLOBULIN M, QN, SERUM <5 mg/dL (26-217); M-SPIKE 1.4 g/dL (Not Observed); PROTEIN, TOTAL, SERUM 6.7 g/dL (6.0-8.5)
== END | disposition home or self-care (01) ==
LOC: LAB 10:45 → LAB SHORT 10:45
PROVIDERS: Internal Medicine Hematology & Oncology
DX: C90.02 Multiple myeloma in relapse (principal)
CPT/HCPCS: 80053; 82784; 83615; 83883; 84155; 84165; 86334

== ENCOUNTER → 2019-07-26 | Outpatient (CLI) | payer OTHER ==
[2019-07-26 16:10] LABS: Albumin, Blood 3.5 g/dL (3.4-5.0); Albumin/Globulin Ratio 0.9 (0.8-1.8); Bilirubin, Total 0.3 mg/dL (0.1-1.0); Bun/Creatinine Ratio 12.8 (12.0-20.0); Creatinine, Blood 1.25 mg/dL (0.40-1.00); Potassium, Blood 4.3 mmol/L (3.5-5.5); Total Protein, Blood 7.5 g/dL (6.4-8.2)
== END ==
LOC: LAB 09:15 → LAB SHORT 09:15
PROVIDERS: Internal Medicine Hematology & Oncology
DX: C90.00 Multiple myeloma not having achieved remission (principal)
CPT/HCPCS: 80053; 83615

== ENCOUNTER 2019-08-02 21:03 | Inpatient (IN) | payer OTHER ==
[~2019-08-02] VITALS: Ht 154.9 cm; Wt 67.2 kg
[~2019-08-02 21:03] MED LIST changes: -ALLO300 PO; -ASPI81CH PO; -Bactrim Ds Tab1 EACH PO; -CEFU500T30 PO; -FAMC500 PO; -XARELTO20 MG PO
[2019-08-02 21:31] LABS: BASOPHILS ABSOLUTE AUTO 0.02 K/mm3 (0.00-0.23); BASOPHILS PERCENT AUTO 0 % (0-2); EOSINOPHILS ABSOLUTE AUTO 0.02 K/mm3 (0.00-0.68); EOSINOPHILS PERCENT AUTO 0 % (0-6); Hematocrit 33.8 % (33.0-51.0); Hemoglobin 10.6 g/dL (11.5-16.0); IMMATURE GRAN ABSOLUTE AUTO 0.27 K/mm3 (0.00-0.10); IMMATURE GRAN PERCENT AUTO 3 % (0-1); LYMPHOCYTES ABSOLUTE AUTO 1.84 K/mm3 (0.84-5.20); LYMPHOCYTES PERCENT AUTO 18 % (21-46); MONOCYTES ABSOLUTE AUTO 0.56 K/mm3 (0.16-1.47); MONOCYTES PERCENT AUTO 5 % (4-13); Mean Corpuscular HGB 31.5 pg (26.0-34.0); Mean Corpuscular HGB Conc 31.4 g/dL (31.5-36.5); Mean Corpuscular Volume 100 fL (80-100); Mean Platelet Volume 9.7 fL (9.1-12.4); NEUTROPHILS ABSOLUTE AUTO 7.66 K/mm3 (1.96-9.15); NEUTROPHILS PERCENT AUTO 74 % (41-73); NRBC ABSOLUTE 0.03 K/mm3 (0.00-0.02); NRBC Auto 0.3 /100 WBC (0.0-0.2); Platelet Count 166 K/mm3 (150-400); RDW Coefficient Variation 16.3 % (11.7-14.2); RDW Standard Deviation 60.4 fL (35.1-46.3); Red Blood Cell Count 3.37 M/mm3 (3.80-5.20); White Blood Cell Count 10.37 K/mm3 (4.00-11.30)
[2019-08-02 22:18] LABS: Albumin, Blood 3.2 g/dL (3.4-5.0); Albumin/Globulin Ratio 0.8 (0.8-1.8); Bilirubin, Total 0.2 mg/dL (0.1-1.0); Bun/Creatinine Ratio 13.2 (12.0-20.0); Calcium, Blood 10.3 mg/dL (8.5-10.1); Creatinine, Blood 1.51 mg/dL (0.40-1.00); Potassium, Blood 4.1 mmol/L (3.5-5.5); Total Protein, Blood 7.2 g/dL (6.4-8.2)
[2019-08-02 22:32] LABS: Source, Urine Clean Catch
[2019-08-02 22:39] LABS: Bilirubin, Urine Neg (Neg); Blood, Urine 3+ (Neg); Glucose Qualitative, Urine Neg (Neg); Ketones, Urine Neg (Neg); Leukocyte Esterase, Urine 2+ (Neg); Nitrite, Urine Neg (Neg); Protein, Urine 3+ (Neg); Urobilinogen, Urine NORM (Normal); pH, Urine 6.5 (5.0-8.0)
[2019-08-02 22:42] LABS: Appearance, Urine Clear (Clear); Color, Urine Yellow (P-Yellow)
[2019-08-02 22:50] LABS: Bacteria Mod /hpf; Red Blood Cells, Urine 0-2 /hpf (0-2); Squamous Epithelial Cells Few /hpf (Few)
[2019-08-02] MEDS ORDERED: MAGNEBIND PO (23:08)
[2019-08-02] MEDS ORDERED: AZIT250 PO (23:11)
[2019-08-02] MEDS ORDERED: FAMC500 PO (23:13)
[2019-08-02] MEDS ORDERED: ASPI81CH PO (23:14)
[2019-08-02] MEDS ORDERED: XARELTO20 MG PO (23:15)
[2019-08-02] MEDS ORDERED: ALLO300 PO (23:15)
[2019-08-02] MEDS ORDERED: Bactrim Ds Tab1 EACH PO (23:16)
[2019-08-02 23:24] LABS: Adenovirus Not Detected (NOT DETECT); Bordetella pertussis Not Detected (NOT DETECT); Chlamydophila pneumoniae Not Detected (NOT DETECT); Coronavirus 229E Not Detected (NOT DETECT); Coronavirus HKU1 Not Detected (NOT DETECT); Coronavirus NL63 Not Detected (NOT DETECT); Coronavirus OC43 Not Detected (NOT DETECT); Human Metapneumovirus Not Detected (NOT DETECT); Human Rhinovirus/Enterovirus Not Detected (NOT DETECT); Influenza A/2009-H1 Not Detected (NOT DETECT); Influenza A/H1 Not Detected (NOT DETECT); Influenza A/H3 Not Detected (NOT DETECT); Influenza B Not Detected (NOT DETECT); Mycoplasma pneumoniae Not Detected (NOT DETECT); Parainfluenza Virus 1 Not Detected (NOT DETECT); Parainfluenza Virus 2 Not Detected (NOT DETECT); Parainfluenza Virus 3 Not Detected (NOT DETECT); Parainfluenza Virus 4 Not Detected (NOT DETECT); Respiratory Syncytial Virus Not Detected (NOT DETECT)
--- NOTE | 2019-08-02 23:45 | NUR ---
CALL TO MD CALL TO DR. FLOOD REGARDING POSSIBLE NEED TO PLACE PATIENT IN ISOLATION. PER MD, NO ISOLATION REQUIRED AT THIS TIME.
[2019-08-03 03:34] LABS: BASOPHILS ABSOLUTE AUTO 0.05 K/mm3 (0.00-0.23); BASOPHILS PERCENT AUTO 0 % (0-2); EOSINOPHILS ABSOLUTE AUTO 0.03 K/mm3 (0.00-0.68); EOSINOPHILS PERCENT AUTO 0 % (0-6); Hematocrit 29.8 % (33.0-51.0); Hemoglobin 9.2 g/dL (11.5-16.0); IMMATURE GRAN ABSOLUTE AUTO 0.61 K/mm3 (0.00-0.10); IMMATURE GRAN PERCENT AUTO 4 % (0-1); LYMPHOCYTES PERCENT AUTO 6 % (21-46); MONOCYTES ABSOLUTE AUTO 0.98 K/mm3 (0.16-1.47); MONOCYTES PERCENT AUTO 6 % (4-13); Mean Corpuscular HGB 31.3 pg (26.0-34.0); Mean Corpuscular HGB Conc 30.9 g/dL (31.5-36.5); Mean Corpuscular Volume 101 fL (80-100); Mean Platelet Volume 9.9 fL (9.1-12.4); NEUTROPHILS ABSOLUTE AUTO 14.46 K/mm3 (1.96-9.15); NEUTROPHILS PERCENT AUTO 84 % (41-73); NRBC ABSOLUTE 0.05 K/mm3 (0.00-0.02); NRBC Auto 0.3 /100 WBC (0.0-0.2); Platelet Count 152 K/mm3 (150-400); RDW Coefficient Variation 16.7 % (11.7-14.2); RDW Standard Deviation 62.1 fL (35.1-46.3); Red Blood Cell Count 2.94 M/mm3 (3.80-5.20); White Blood Cell Count 17.13 K/mm3 (4.00-11.30)
[2019-08-03 03:53] LABS: Bun/Creatinine Ratio 9.6 (12.0-20.0); Calcium, Blood 9.7 mg/dL (8.5-10.1); Creatinine, Blood 2.4 mg/dL (0.40-1.00); Potassium, Blood 4.1 mmol/L (3.5-5.5)
--- NOTE | 2019-08-03 04:00 | NUR ---
HYPOTENSION MESSAGE LEFT FOR DR. FLOOD REGARDING LOW BLOOD PRESSURE- NO RETURN CALL OF YET.
--- NOTE | 2019-08-03 04:30 | NUR ---
CALL TO MD ATTEMPTED SECOND CALL TO DR. FLOOD REGARDING HYPOTENSION. WILL WAIT FOR RETURN CALL.
--- NOTE | 2019-08-03 06:25 | NUR ---
PT VERY RESTLESS IN CPAP. ADJUSTED BY RESPIRATORY THERAPY FOR PATIENT COMFORT, NOW AT INCREASED PRESSURE. PT MORE COMFORTABLE. BOLUS GIVEN FOR MAPs IN 50s. CRITICAL CARE CONSULT CALLED INTO SERVICE FOR 0700. PT ABLE TO GET TO BEDSIDE COMMODE WITH STANDBY ASSIST, BUT DID NOT URINATE. WILL ATTEMPT LATER. THERAPEUTIC COMMUNICATION DONE TO ALLEVIATE PT ANXIETY, TO GOOD EFFECT.
--- NOTE | 2019-08-03 07:50 | NUR ---
0700-ASSUMED CARE OF PT. PT IS ALERT AND ORIENTED. USING A SMALL BIPAP WITH 3 L O2 BLEED INTO. HELPED PT TO THE BEDSIDE COMMODE. PT IS ONE PERSON STANDBY ASSIST. PT STATED SHE JUST HAD HER CHEMO THURSDAY. 0750-PT IS CURRENTLY SITTING AT THE SIDE OF THE BED AT THIS TIME.
--- NOTE | 2019-08-03 10:35 | NUR ---
SEEN BY DR. BENITEZ, UPDATED HIM OF PT'S STATUS. PT IS IN ISOLATION AT THIS TIME TO R/O COVID-[address] BENITEZ. SPECIMENS WERE SENT TO LAB TO BE PROCESSED.
[2019-08-03 11:23] LABS: Test Name COVID-19
--- NOTE | 2019-08-03 18:12 | NUR ---
SHIFT SUMMARY: PT IS ALERT AND ORIENTED. PT SITTING ON THE CHAIR AT THIS TIME EATING HER DINNER TRAY. PT IS HAS BEEN SLEEPING MOST OF THE DAY AND HAS BEEN WEARING HER BIPAP WHILE ASLEEP. PT'S O2 STAURATION HAS STAYED ABOVE 90% WHILE ON BIPAP AND ON 4 LPM NC. BLOOD PRESSURE HAS BEEN FROM 80s-110s. AFEBRILE THROUGH THE ENTIRE SHIFT.
--- NOTE | 2019-08-03 18:40 | NUR ---
Initial spiritual care note: Barbie was alone in room when I met with her. She awakens easily to voice, but appears quite sleepy. She says she lives with her family, all of wohm have been ill. She denies concerns and expresses hope her cancer treatments "are working." Because she seemed so tired, visit kept short. We have an easy rapport from previous hospitalizations, and Barbie is quite pleasant and grateful for care. We prayed together for her family at her request. I will remain available to pt and family.
--- NOTE | 2019-08-03 20:55 | NUR ---
ASSUMED CARE OF PT AT 1900. PT IS IN PLEASANT, HOPEFUL MOOD. PT STATES HER PAIN IS MUCH BETTER CONTROLLED. PT STATED HER LAST CHEMO DOSE WAS ACTUALLY THURSDAY, 08/02, NOT THURSDAY. CHEMO PRECAUTIONS UPDATED. PT IS SPEAKING MORE CLEARLY, WITHOUT THE MUMBLING STATEMENTS OF THE PREVIOUS EVENING. PT REPOSITIONING SELF IN BED, BUT STATES PREFERENCE FOR HER LEFT SIDE. EXTRA PILLOWS ADDED TO HER SIDE. PT STATES HER "LEFT LUNG PAIN" IS MUCH BETTER WELL. RESPIRATORY RATE HAS DECREASED/ EASED. LUNG SOUNDS HAVE IMPROVED WELL.
--- NOTE | 2019-08-03 23:38 | NUR ---
PT REFUSED ORAL CARE, STATING " I HAVE NO TEETH". PT EDUCATED ON BENEFIT TO BRUSHING GUMS AND REFUSED, STATING " CERTAINLY NOT IN THE MIDDLE OF THE NIGHT". INFORMED PT WOULD OFFER AGAIN AT 0400, OR WHEN WOKEN NEXT. PT AGREED TO TRY.
[2019-08-04 04:16] LABS: Albumin, Blood 2.5 g/dL (3.4-5.0); Albumin/Globulin Ratio 0.7 (0.8-1.8); Bilirubin, Total 0.2 mg/dL (0.1-1.0); Bun/Creatinine Ratio 13.7 (12.0-20.0); Calcium, Blood 9.5 mg/dL (8.5-10.1); Creatinine, Blood 2.19 mg/dL (0.40-1.00); Globulin, Blood 3.6 g/dL (2.2-4.0); Magnesium, Blood 2.3 mg/dL (1.6-2.4); Potassium, Blood 4.4 mmol/L (3.5-5.5); Total Protein, Blood 6.1 g/dL (6.4-8.2)
[2019-08-04 04:34] LABS: BASOPHILS ABSOLUTE AUTO 0.01 K/mm3 (0.00-0.23); BASOPHILS PERCENT AUTO 0 % (0-2); EOSINOPHILS ABSOLUTE AUTO 0.05 K/mm3 (0.00-0.68); EOSINOPHILS PERCENT AUTO 1 % (0-6); Hemoglobin 8.4 g/dL (11.5-16.0); IMMATURE GRAN ABSOLUTE AUTO 0.11 K/mm3 (0.00-0.10); IMMATURE GRAN PERCENT AUTO 2 % (0-1); LYMPHOCYTES ABSOLUTE AUTO 1.62 K/mm3 (0.84-5.20); LYMPHOCYTES PERCENT AUTO 22 % (21-46); MONOCYTES ABSOLUTE AUTO 0.65 K/mm3 (0.16-1.47); MONOCYTES PERCENT AUTO 9 % (4-13); Mean Corpuscular HGB 31.8 pg (26.0-34.0); Mean Corpuscular HGB Conc 31.1 g/dL (31.5-36.5); Mean Corpuscular Volume 102 fL (80-100); NEUTROPHILS ABSOLUTE AUTO 4.91 K/mm3 (1.96-9.15); NEUTROPHILS PERCENT AUTO 67 % (41-73); NRBC ABSOLUTE 0.02 K/mm3 (0.00-0.02); NRBC Auto 0.3 /100 WBC (0.0-0.2); Platelet Count 118 K/mm3 (150-400); RDW Coefficient Variation 17.2 % (11.7-14.2); RDW Standard Deviation 64.1 fL (35.1-46.3); Red Blood Cell Count 2.64 M/mm3 (3.80-5.20); White Blood Cell Count 7.35 K/mm3 (4.00-11.30)
--- NOTE | 2019-08-04 06:13 | NUR ---
PT HAS SLEPT MOST OF THE NIGHT POST EVENING MEDICATIONS, HOWEVER, SHE IS EASILY ROUSABLE, AND FULLY ALERT AND ORIENTED WHEN DOING SO. PT IS COMPLIANT WITH BIPAP USAGE. PT REFUSED ORAL CARE AGAIN AT 0400, BUT COULD CLEARLY STATE THE BENEFITS OF DOING IT "PREVENT THRUSH AND STUFF ON MY TONGUE AND GUMS". PT AGREED TO RECONSIDER DURING THE DAY. PT'S MEDIPORT IS NOW ACCESSED, AND DRAWS WELL FLUSHES. PT TURNING SELF FREQUENTLY.
--- NOTE | 2019-08-04 08:30 | NUR ---
SHIFT ASSESSMENT PT IS RESTING IN BED WITH BIPAP MASK ON AT THIS TIME. SHE REQUESTED TO GET UP TO BEDSIDE COMMODE WITH ASSISTANCE. THIS RN CHANGED BIPAP TO 3L N/C. PT WAS ASSISTED UP TO COMMODE WITH ONLY STAND BY ASSISTANCE. PT STATES HER NECK IS VERY STIFF AND THIS IS JUST FROM LAYING DOWN TOO LONG. PT WILL RECIEVE HER PAIN MEDICATIONS SCHEDULED THIS AM. VITALS ARE STABLE. PT DID NOT APPEAR TO BE SOB THIS AM. SHE WAS ABLE TO TAKE PILLS THIS AM AND EAT BREAKFAST WITH NO ISSUES. PT HAS A PERIPHERAL IV AND AN ACCESSED MEDIPORT. NO S/S OF INFECTION DRESSING CDI. PT CON'T TO BE UP IN CHAIR EATING BREAKFAST UPON THIS RN LEAVING ROOM. WILL CON'T TO MONITOR AND KEEP PT SAFE T/O REMAINDER OF SHIFT.
--- NOTE | 2019-08-04 09:48 | NUR ---
DR DONI MARION IN TO SEE PT THIS AM. NO NEW ORDERS AT THIS TIME.
--- NOTE | 2019-08-04 13:38 | NUR ---
ASSESSMENT PT CON'T TO BE STABLE WITH NO CHANGES FROM BASELINE. SHE DID GET UP TO CHAIR FOR LUNCH. THIS TIME SHE WAS SOB UPON RETURING TO BED AND REQUESTED TO HAVE THE BIPAP BACK IN PLACE. PT ALSO REQUESTED TO HAVE PAIN MEDICINE. STATES HER BACK, NECK AND LEGS WERE HURTING. STATES SHE ALSO HAS A HEADACHE. VSS. PT NOW RESTING IN BED. WILL CON'T TO MONITOR PT AND KEEP SAFE.
--- NOTE | 2019-08-04 16:45 | NUR ---
1500 CARE ASSUMED REPORT RECEIVED, PT SLEEPING AT THIS TIME, BIPAP ON AT 12/5, FIO2 30%, SPO2 >95%, NO S/SX DISTRESS NOTED AT THIS TIME. 1600: PT REQUESTING BREAK FROM BIPAP, NC ON AT 3L/NC BY RT. SPO2 MID 90'S. 1630: PT ASSISTED TO BSC TO VOID, THEN BACK TO BED, WAS SOB UPON RETURN TO BED, BIPAP MASK REPLACED AT PREVIOUS SETTINGS, SPO2 96%, VSS. PT DENIES OTHER NEEDS AT THIS TIME. LS COARSE WITH FINE EXP WHEEZES IN SHARON.
--- NOTE | 2019-08-04 18:53 | NUR ---
END OF SHIFT PT UP TO CHAIR TO EAT DINNER, TOLERATES 3L/NC WELL WHILE SITTING, ATE WITHOUT DIFFICULTY, APPETITE GOOD. PT ASSISTED BACK TO BED, VSS, BIPAP REPLACED PER PT REQUEST. VSS. NO CORONAVIRUS RESULTS RECEIVED YET, PT AWARE. PT TOLERATES BIPAP WELL, REPORT TO ONCOMING SHIFT.
--- NOTE | 2019-08-04 20:49 | NUR ---
ASSUMED CARE OF PT AT 1900. PT IS AWAKE, ALERT, ORIENTED, AND IN EBULLIENT MOOD. PT ASKED QUESTIONS ABOUT PLAN OF CARE, STATUS OF TESTING, AND ANSWERED. PT TRANSFERING FROM BED TO BSC STRONGER, WITH WEAKNESS DUE TO RESPIRATORY STATUS. PT SHOWING GREAT IMPROVEMENT. ORAL CARE COMPLETED BY PATIENT INEPENDENTLY.
--- NOTE | 2019-08-05 03:41 | NUR ---
PAIN PT C/O HEAD AND NECK PAIN 7/10 MED WITH OXYCODONE, UP TO BSC AND VOIDED. BACK TO BED. VS AND WT DONE.
[2019-08-05 03:53] LABS: BASOPHILS PERCENT AUTO 0 % (0-2); EOSINOPHILS ABSOLUTE AUTO 0.04 K/mm3 (0.00-0.68); EOSINOPHILS PERCENT AUTO 1 % (0-6); Hematocrit 28.5 % (33.0-51.0); Hemoglobin 8.8 g/dL (11.5-16.0); IMMATURE GRAN ABSOLUTE AUTO 0.08 K/mm3 (0.00-0.10); IMMATURE GRAN PERCENT AUTO 2 % (0-1); LYMPHOCYTES ABSOLUTE AUTO 1.48 K/mm3 (0.84-5.20); LYMPHOCYTES PERCENT AUTO 28 % (21-46); MONOCYTES ABSOLUTE AUTO 0.59 K/mm3 (0.16-1.47); MONOCYTES PERCENT AUTO 11 % (4-13); Mean Corpuscular HGB 31.7 pg (26.0-34.0); Mean Corpuscular HGB Conc 30.9 g/dL (31.5-36.5); Mean Corpuscular Volume 103 fL (80-100); Mean Platelet Volume 9.9 fL (9.1-12.4); NEUTROPHILS ABSOLUTE AUTO 3.05 K/mm3 (1.96-9.15); NEUTROPHILS PERCENT AUTO 58 % (41-73); NRBC ABSOLUTE 0.03 K/mm3 (0.00-0.02); NRBC Auto 0.6 /100 WBC (0.0-0.2); Platelet Count 102 K/mm3 (150-400); RDW Coefficient Variation 16.8 % (11.7-14.2); RDW Standard Deviation 63.7 fL (35.1-46.3); Red Blood Cell Count 2.78 M/mm3 (3.80-5.20); White Blood Cell Count 5.24 K/mm3 (4.00-11.30)
[2019-08-05 04:17] LABS: Bun/Creatinine Ratio 15.4 (12.0-20.0); Calcium, Blood 10.3 mg/dL (8.5-10.1); Creatinine, Blood 1.3 mg/dL (0.40-1.00); Potassium, Blood 4.6 mmol/L (3.5-5.5)
--- NOTE | 2019-08-05 04:28 | NUR ---
PAIN/NAUSEA PT C/O NECK PAIN AND NAUSEA. STATES,"MY HEADACHE IS BETTER BUT MY NECK/BACK IN 01/01". PT MED WITH TYLENOL AND ZOFRAN.
--- NOTE | 2019-08-05 05:52 | NUR ---
PT SLEPT MOST OF EVENING. PT'S PAIN WAS DIFFICULT TO CONTROL, WITH MEDICATIONS AND FREQUENT REPOSITIONING WITH BIPAP AND LINES. PT STRONGER AND STEADIER WHEN UP TO BEDSIDE COMMODE, WITH BETTER RESPIRATORY TOLERANCE/ RESERVE.
--- NOTE | 2019-08-05 11:39 | NUR ---
UNDETECTED COVID-19: RECEIVED CALL FROM IN LAB WITH STATMENT OF RECEIVING BACK COVID-19 RESULTS BEING UNDETECTED. ISOLATION REMOVED. DR MELTON OVERHEARD AND IS AWARE. WILL CONTINUE TO MONITOR.
--- NOTE | 2019-08-05 19:10 | NUR ---
ASSUMED CARE OF PT, BEDSIDE REPORT RECEIVED, SHE IS SITTING UP IN CHAIR AT BEDSIDE AND WATCHING TV, DENIES NEEDS AT THIS TIME, HAS BEEN IND IN ROOM PER DAY SHIFT RN. PT STATES WILL CALL WHEN SHE WOULD LIKE TO GO BACK TO BED.
--- NOTE | 2019-08-05 22:15 | NUR ---
PT TO ROOM 305 VIA WHEELCHAIR, REPORT TO LAZARA LITTLEJOHN
--- NOTE | 2019-08-05 22:28 | NUR ---
TRANSFER NOTE HANDOFF RECEIVED FROM ICU NURSE BRIAN. PT TRANSFERED TO FLOOR VIA WHEELCHAIR. PERSONAL POSSESSIONS IN ROOM. PT ORIENTED TO UNIT. CALL BUTTON WITHIN REACH
[2019-08-06 05:16] LABS: Bun/Creatinine Ratio 13.6 (12.0-20.0); Calcium, Blood 10.4 mg/dL (8.5-10.1); Creatinine, Blood 1.32 mg/dL (0.40-1.00); Potassium, Blood 4.8 mmol/L (3.5-5.5)
--- NOTE | 2019-08-06 06:48 | NUR ---
SHIFT SUMMARY PT TRANSFERED FROM ICU THIS SHIFT. ADMITTED FOR ACUTE AND CHRONIC RESP FAILURE. FULL CODE. MEDIPORT IS ACCESSED. CPAP @ PM. 3 LPM O2 @ HOME. SHE IS A&O X4, INDEPENDENT IN ROOM, CARDIAC DIET. LUNG SOUNDS ARE WHEEZY THROUGHOUT. SHE IS PLEASANT AND COOPERATIVE WITH CARE.
[2019-08-06] MEDS ORDERED: CEFU500T30 PO (11:53)
--- NOTE | 2019-08-06 14:50 | NUR ---
DISCHARGE SUMMARY PT DISCHARGED TO HOME. PT LEFT ROOM VIA WHEELCHAIR AND ASSISTANT SERVICE MANAGER ESCORT AT 1349 WITH DAUGHTER PRESENT. PATIENT LEFT BEFORE NURSE COULD COMPLETE DISCHARGE INSTRUCTIONS. NURSE CALLED PATIENT AND DISCUSSED DISCHARGE INSTRUCTIONS OVER THE PHONE. PT AGREES TO FOLLOW UP WITH PCP AND TAKE MEDICATIONS PRESCRIBED. IV DC'D AND MEDIPORT DEACCESSED PER PROTOCOL, SEE EMAR. THIS NURSE WILL MAIL DC INTRUCTIONS PER PT REQUEST.
== END 2019-08-06 13:49 | disposition home or self-care (01) | DRG 193 ==
LOC: ER 21:03 → ICUE 08-03 00:29 → MEDS 08-03 00:29 → ICUW 08-03 00:29 → ICUE 08-03 01:55 → MEDS 08-05 22:27
PROVIDERS: Internal Medicine; Internal Medicine Critical Care Medicine; Nurse Practitioner Acute Care; Physician Assistant; ADMIT Internal Medicine
DX: J18.9 Pneumonia, unspecified organism (principal); J96.21 Acute and chronic respiratory failure with hypoxia; C90.00 Multiple myeloma not having achieved remission; N39.0 Urinary tract infection, site not specified; J44.0 Chronic obstructive pulmonary disease with (acute) lower respiratory infection; N17.9 Acute kidney failure, unspecified; G47.33 Obstructive sleep apnea (adult) (pediatric); E11.9 Type 2 diabetes mellitus without complications; F17.210 Nicotine dependence, cigarettes, uncomplicated; E83.52 Hypercalcemia; G89.29 Other chronic pain; Z99.81 Dependence on supplemental oxygen; Z86.718 Personal history of other venous thrombosis and embolism; Z92.21 Personal history of antineoplastic chemotherapy; I95.9 Hypotension, unspecified; D63.0 Anemia in neoplastic disease
CPT/HCPCS: 0099U; 36415; 71046; 80048; 80053; 81001; 82947; 83605; 83735; 84484; 85025; 87040; 87081; 87086; 93005; 93010; 94640; 94660; 94762; 96361; 96365; 96368; 99285-25; A9270; A9270-GY; J0456; J0692; J0696; J1642; J2405; J7030; J7050; J7120

== ENCOUNTER → 2019-08-02 | Outpatient (CLI) | payer OTHER ==
[~2019-08-02] MED LIST changes: +ALLO300 PO; +ASPI81CH PO; +Bactrim Ds Tab1 EACH PO; +CEFU500T30 PO; -CHOL10002 PO; +FAMC500 PO; +VITAMIN D325 MCG PO; +XARELTO20 MG PO
[2019-08-02 11:13] LABS: Albumin, Blood 3.6 g/dL (3.4-5.0); Albumin/Globulin Ratio 0.9 (0.8-1.8); Bilirubin, Total 0.4 mg/dL (0.1-1.0); Bun/Creatinine Ratio 14.4 (12.0-20.0); Calcium, Blood 10.6 mg/dL (8.5-10.1); Creatinine, Blood 1.39 mg/dL (0.40-1.00); Globulin, Blood 3.8 g/dL (2.2-4.0); Potassium, Blood 4.2 mmol/L (3.5-5.5); Total Protein, Blood 7.4 g/dL (6.4-8.2)
== END | disposition home or self-care (01) ==
LOC: LAB SHORT 09:28 → LAB 09:28
PROVIDERS: Internal Medicine Hematology & Oncology
DX: C90.00 Multiple myeloma not having achieved remission (principal)
CPT/HCPCS: 80053

== ENCOUNTER 2019-09-10 11:28 | Emergency (ER) | payer OTHER ==
[~2019-09-10] VITALS: Ht 167.6 cm; Wt 108.0 kg
[~2019-09-10 11:28] MED LIST changes: +ALLO300 PO; +ASPI81CH PO; +Bactrim Ds Tab1 EACH PO; +CEFU500T30 PO; +FAMC500 PO; +XARELTO20 MG PO
[2019-09-10] MEDS ORDERED: Revlimid10 MG PO (11:46)
[2019-09-10] MEDS ORDERED: NINLARO3 MG PO (11:46)
[2019-09-10 12:34] LABS: Hematocrit 30.3 % (33.0-51.0); Hemoglobin 9.5 g/dL (11.5-16.0); Mean Corpuscular HGB 31.1 pg (26.0-34.0); Mean Corpuscular HGB Conc 31.4 g/dL (31.5-36.5); Mean Corpuscular Volume 99 fL (80-100); Mean Platelet Volume 11.6 fL (9.1-12.4); NRBC ABSOLUTE 0.04 K/mm3 (0.00-0.02); NRBC Auto 0.6 /100 WBC (0.0-0.2); RDW Coefficient Variation 15.6 % (11.7-14.2); RDW Standard Deviation 56.2 fL (35.1-46.3); Red Blood Cell Count 3.05 M/mm3 (3.80-5.20); White Blood Cell Count 6.51 K/mm3 (4.00-11.30)
[2019-09-10 12:40] LABS: Platelet Count 42 K/mm3 (150-400)
[2019-09-10 12:56] LABS: Albumin, Blood 3.2 g/dL (3.4-5.0); Albumin/Globulin Ratio 0.5 (0.8-1.8); BAND PERCENT MAN 13 % (0-8); BASOPHILS ABSOLUTE MAN 0.06 K/mm3 (0.00-0.23); BASOPHILS PERCENT MAN 1 % (0-2); Bilirubin, Total 0.6 mg/dL (0.1-1.0); Bun/Creatinine Ratio 17.5 (12.0-20.0); Creatinine, Blood 1.43 mg/dL (0.40-1.00); EOSINOPHILS ABSOLUTE MAN 0.06 K/mm3 (0.00-0.68); EOSINOPHILS PERCENT MAN 1 % (0-6); Globulin, Blood 6.4 g/dL (2.2-4.0); LYMPHOCYTES ABSOLUTE MAN 1.69 K/mm3 (0.84-5.20); LYMPHOCYTES PERCENT MAN 26 % (21-46); METAMYELOCYTE ABSOLUTE MAN 0.39 K/mm3 (0.00-0.00); METAMYELOCYTE PERCENT MAN 6 % (0-0); MONOCYTES ABSOLUTE MAN 0.19 K/mm3 (0.16-1.47); MONOCYTES PERCENT MAN 3 % (4-13); MYELOCYTE ABSOLUTE MAN 0.19 K/mm3 (0.00-0.00); MYELOCYTE PERCENT MAN 3 % (0-0); Potassium, Blood 4.9 mmol/L (3.5-5.5); SEG NEUTROPHILS PERCENT MAN 47 % (41-73); TOTAL CELLS COUNTED 100; Total Protein, Blood 9.6 g/dL (6.4-8.2)
== END 2019-09-10 13:36 | disposition home or self-care (01) ==
LOC: ER 11:28
PROVIDERS: Emergency Medicine
DX: R51 Headache (principal); M54.9 Dorsalgia, unspecified; D69.6 Thrombocytopenia, unspecified; C90.00 Multiple myeloma not having achieved remission; G89.29 Other chronic pain; J44.9 Chronic obstructive pulmonary disease, unspecified; G47.30 Sleep apnea, unspecified; F17.200 Nicotine dependence, unspecified, uncomplicated; Z91.048 Other nonmedicinal substance allergy status; Z79.899 Other long term (current) drug therapy; Z79.51 Long term (current) use of inhaled steroids
CPT/HCPCS: 70450; 80053; 85025; 96374; 99284-25; J2405